=== PATIENT | female | born 1950 | race Caucasian/White ===

== ENCOUNTER 2016-09-19 15:00 | Inpatient (IN) | payer MEDICARE ==
[2016-09-19] VITALS (7 sets, daily range): BP systolic 148–224; BP diastolic 81–110; PULSE 72–88; RESP 16–20; TEMP 98.1–98.6; O2SAT 94–98
[~2016-09-19] VITALS: Ht 152.4 cm; Wt 103.0 kg
[~2016-09-19 15:00] MED LIST: RANI150 PO
[2016-09-19] MEDS ORDERED: SODIUM CHLORIDE 0.9% FLUSH 10 ML FLUSH IVF PRN (15:45)
[2016-09-19] MEDS ORDERED: ASPIRIN 81 MG CHEW TAB PO ONE (15:45)
[2016-09-19 16:01] LABS: AUTOMATED NEUTROPHIL # 4.1 TH/MM3 (1.8-7.7); BASOPHIL % 0.6 % (0.0-2.0); EOSINOPHIL # 0.3 TH/MM3 (0-0.4); EOSINOPHIL % 3.5 % (0.0-4.0); HEMATOCRIT 42.9 % (35.0-46.0); HEMO FLAGS DIFF FINAL; LYMPH % 30.7 % (9.0-44.0); LYMPHOCYTE # 2.2 TH/MM3 (1.0-4.8); MEAN CELL VOLUME 85.9 FL (80.0-100.0); MEAN CORPUSCULAR HEMOGLOBIN 28.9 PG (27.0-34.0); MEAN CORPUSCULAR HGB CONC 33.7 % (32.0-36.0); MONO % 8.9 % (0.0-8.0); NEUT % 56.3 % (16.0-70.0); PLATELET COUNT 283 TH/MM3 (150-450); RED CELL DISTRIBUTION WIDTH 11.6 % (11.6-17.2); WHITE BLOOD COUNT 7.2 TH/MM3 (4.0-11.0)
[2016-09-19 16:09] LABS: CHLORIDE 104 MEQ/L (98-107); POTASSIUM 3.8 MEQ/L (3.5-5.1); SODIUM (NA) 139 MEQ/L (136-145)
--- NOTE | 2016-09-19 16:10 | PD ---
HPI Chief Complaint: Chest Pain Time Seen by Provider: 16:02 Travel History International Travel<30 days: No Contact w/Intl Traveler<30days: No Traveled to known affect area: No History of Present Illness HPI This is a 65-year-old female who has a remote history of breast cancer and who has a family history of her mom having a heart attack at 65 who presents to the emergency department with chest discomfort. She reports that her chest discomfort started last evening as a pain in her left side, sharp, stabbing, intermittent, and progress today feeling like she had a board pressing down on her chest. She did have some radiation to the back. She denies any associated diaphoresis or shortness of breath but did feel little bit nauseous with the pain. She took 1 mg of Ativan prior to arrival because she thought it might help with the symptoms and currently she denies any chest pain here in the emergency department. She says she hasn't seen a doctor in 10 years and is not sure if she has diabetes, hypertension or hyperlipidemia. She denies a smoking history. PFSH Past Medical History Cancer: Yes (breast) Migraines: Yes Menopausal: No Past Surgical History Appendectomy: Yes Tonsillectomy: Yes Other Surgery: Yes (BREAST CA - LUMPECTOMY X 2 - AND PORT) Social History Alcohol Use: No Tobacco Use: No Substance Use: No Allergies-Medications (Allergen,Severity, Reaction): Coded Allergies: Codeine (Verified Allergy, Mild, UPSET STOMACH, 06/06/13) Garlic (Verified Adverse Reaction, Mild, POWDERY FEELING IN MOUTH, 06/06/13) Uncoded Allergies: RED MEATS (Adverse Reaction, Mild, POWDERY FEELING IN MOUTH, 05/25/05) Reported Meds & Prescriptions Reported Meds & Active Scripts Active No Active Prescriptions or Reported Medications Review of Systems Except as stated in HPI: all other systems reviewed are Neg Physical Exam Narrative GENERAL:Well appearing, no acute distress SKIN: Focused skin assessment warm and dry. HEAD: Atraumatic. Normocephalic. EYES: Pupils equal and round. No injection or drainage. ENT: Moist mucous membranes NECK: Trachea midline. CARDIOVASCULAR: Regular rate and rhythm. No murmur appreciated. RESPIRATORY: Clear to auscultation. Breath sounds equal bilaterally. GASTROINTESTINAL: Abdomen soft, non-tender, nondistended. MUSCULOSKELETAL: No obvious deformities. NEUROLOGICAL: Awake and alert. No obvious cranial nerve deficits. Moving all extremities. PSYCHIATRIC: Appropriate mood and affect; insight and judgment normal. Data Data Last Documented VS Vital Signs Date Time Temp Pulse Resp B/P Pulse Ox O2 Delivery O2 Flow Rate FiO2 09/19/16 16:02 97 Room Air 09/19/16 15:24 98.1 80 16 172/81 Orders Electrocardiogram (09/19/16 15:43) Complete Blood Count With Diff (09/19/16 15:43) Comprehensive Metabolic Panel (09/19/16 15:43) D-Dimer (09/19/16 15:43) Magnesium (Mg) (09/19/16 15:43) Prothrombin Time / Inr (Pt) (09/19/16 15:43) Act Partial Throm Time (Ptt) (09/19/16 15:43) Troponin I (09/19/16 15:43) Chest, Single Ap (09/19/16 15:43) Ecg Monitoring (09/19/16 15:43) Bilateral Bp Monitoring (09/19/16 15:43) Iv Access Insert/Monitor (09/19/16 15:43) Oximetry (09/19/16 15:43) Oxygen Administration (09/19/16 15:43) Aspirin Chew (Aspirin Chew) (09/19/16 15:45) Sodium Chloride 0.9% Flush (Ns Flush) (09/19/16 15:45) Labs Laboratory Tests Test 09/19/16 15:48 White Blood Count 7.2 TH/MM3 Red Blood Count 5.00 MIL/MM3 Hemoglobin 14.4 GM/DL Hematocrit 42.9 % Mean Corpuscular Volume 85.9 FL Mean Corpuscular Hemoglobin 28.9 PG Mean Corpuscular Hemoglobin 33.7 % Concent Red Cell Distribution Width 11.6 % Platelet Count 283 TH/MM3 Mean Platelet Volume 7.8 FL Neutrophils (%) (Auto) 56.3 % Lymphocytes (%) (Auto) 30.7 % Monocytes (%) (Auto) 8.9 % Eosinophils (%) (Auto) 3.5 % Basophils (%) (Auto) 0.6 % Neutrophils # (Auto) 4.1 TH/MM3 Lymphocytes # (Auto) 2.2 TH/MM3 Monocytes # (Auto) 0.6 TH/MM3 Eosinophils # (Auto) 0.3 TH/MM3 Basophils # (Auto) 0.0 TH/MM3 CBC Comment DIFF FINAL Differential Comment MDM Medical Decision Making Medical Screen Exam Complete: Yes Emergency Medical Condition: Yes Interpretation(s) Afebrile, no tachycardia EKG: Normal sinus rhythm, no ST changes Differential Diagnosis Acute coronary syndrome, pulmonary embolism, pneumonia, pneumothorax, costochondritis Narrative Course This is a 65-year-old female who presents to the emergency department with left- sided chest pain. She does have a family history of heart attack in her mother. She is placed on a monitor and an IV was established. EKG is nonischemic. She was given aspirin and nitroglycerin for her blood pressure. Chest x-ray and labs were ordered, including a d-dimer given her personal history of breast cancer. I recommended observation to the patient for serial cardiac enzymes and stress test and she was amenable to this. Diagnosis Primary Impression: Chest pain Qualified Code: R07.9 - Chest pain, unspecified type Admitting Information Admitting Physician Requests: Observation Scripts No Active Prescriptions or Reported Meds Jojo Vale MD September 19, 2016 16:10
[2016-09-19 16:13] LABS: ANION GAP 9 MEQ/L (5-15); BICARBONATE 26.1 MEQ/L (21.0-32.0); BLOOD UREA NITROGEN 12 MG/DL (7-18); MAGNESIUM 2.5 MG/DL (1.5-2.5)
[2016-09-19] MEDS ORDERED: NITROGLYCERIN 0.4 MG SL 25 TABS/BTL SL PRN ×2 (16:15→17:30)
[2016-09-19 16:16] LABS: ALT (GPT) 29 U/L (10-53); AST (GOT) 17 U/L (15-37); GLOMERULAR FILTRATION RATE 75 ML/MIN (>89)
[2016-09-19 16:17] LABS: TOTAL BILIRUBIN ADULT 0.3 MG/DL (0.2-1.0)
[2016-09-19 16:19] LABS: ALKALINE PHOSPHATASE 52 U/L (45-117)
[2016-09-19 16:21] LABS: APTT (PATIENT) 25.3 SEC (24.3-30.1); INTERNATIONAL NORMALIZED RATIO 0.9 RATIO
--- NOTE | 2016-09-19 16:21 | RADHPO ---
EXAM DATE/TIME: 09/19/2016 15:55 [facility] COMPARISON: No previous studies available for comparison. INDICATIONS : Chest pain. MEDICAL HISTORY : None. SURGICAL HISTORY : None. ENCOUNTER: Initial ACUITY: 1 day PAIN SCORE: 3/10 LOCATION: Bilateral chest FINDINGS: A single view of the chest demonstrates the lungs to be symmetrically aerated without evidence of mas s, infiltrate or effusion. The cardiomediastinal contours are unremarkable. Osseous structures are intact. CONCLUSION: No acute disease. Robin Tran MD on September 19, 2016 at 16:19 Board Certified Radiologist. This report was verified electronically.
--- NOTE | 2016-09-19 16:31 | PD ---
Data Data Last Documented VS Vital Signs Date Time Temp Pulse Resp B/P Pulse Ox O2 Delivery O2 Flow Rate FiO2 09/19/16 16:02 97 Room Air 09/19/16 15:24 98.1 80 16 172/81 Orders Electrocardiogram (09/19/16 15:43) Complete Blood Count With Diff (09/19/16 15:43) Comprehensive Metabolic Panel (09/19/16 15:43) D-Dimer (09/19/16 15:43) Magnesium (Mg) (09/19/16 15:43) Prothrombin Time / Inr (Pt) (09/19/16 15:43) Act Partial Throm Time (Ptt) (09/19/16 15:43) Troponin I (09/19/16 15:43) Chest, Single Ap (09/19/16 15:43) Ecg Monitoring (09/19/16 15:43) Bilateral Bp Monitoring (09/19/16 15:43) Iv Access Insert/Monitor (09/19/16 15:43) Oximetry (09/19/16 15:43) Oxygen Administration (09/19/16 15:43) Aspirin Chew (Aspirin Chew) (09/19/16 15:45) Sodium Chloride 0.9% Flush (Ns Flush) (09/19/16 15:45) Nitroglycerin Sl (Nitrostat Sl) (09/19/16 16:15) Ct Pulmonary Angiogram (09/19/16 16:28) Iohexol 350 Inj (Omnipaque 350 Inj) (09/19/16 16:58) Labs Laboratory Tests Test 09/19/16 15:48 White Blood Count 7.2 TH/MM3 Red Blood Count 5.00 MIL/MM3 Hemoglobin 14.4 GM/DL Hematocrit 42.9 % Mean Corpuscular Volume 85.9 FL Mean Corpuscular Hemoglobin 28.9 PG Mean Corpuscular Hemoglobin 33.7 % Concent Red Cell Distribution Width 11.6 % Platelet Count 283 TH/MM3 Mean Platelet Volume 7.8 FL Neutrophils (%) (Auto) 56.3 % Lymphocytes (%) (Auto) 30.7 % Monocytes (%) (Auto) 8.9 % Eosinophils (%) (Auto) 3.5 % Basophils (%) (Auto) 0.6 % Neutrophils # (Auto) 4.1 TH/MM3 Lymphocytes # (Auto) 2.2 TH/MM3 Monocytes # (Auto) 0.6 TH/MM3 Eosinophils # (Auto) 0.3 TH/MM3 Basophils # (Auto) 0.0 TH/MM3 CBC Comment DIFF FINAL Differential Comment Prothrombin Time 10.0 SEC Prothromb Time International 0.9 RATIO Ratio Activated Partial 25.3 SEC Thromboplast Time D-Dimer Quantitative (PE/DVT) 0.64 MG/L FEU Sodium Level 139 MEQ/L Potassium Level 3.8 MEQ/L Chloride Level 104 MEQ/L Carbon Dioxide Level 26.1 MEQ/L Anion Gap 9 MEQ/L Blood Urea Nitrogen 12 MG/DL Creatinine 0.77 MG/DL Estimat Glomerular Filtration 75 ML/MIN Rate Random Glucose 153 MG/DL Calcium Level 8.9 MG/DL Magnesium Level 2.5 MG/DL Total Bilirubin 0.3 MG/DL Aspartate Amino Transf 17 U/L (AST/SGOT) Alanine Aminotransferase 29 U/L (ALT/SGPT) Alkaline Phosphatase 52 U/L Troponin I LESS THAN 0.02 NG/ML Total Protein 7.7 GM/DL Albumin 3.4 GM/DL [facility] Supervised Visit with ANA MARÍA: No Narrative Course The patient was initially evaluated by the previous provider and signed out to me at the beginning of my shift approximate 4:00 PM pending labs and disposition. See her note for further details. Briefly this is a 65-year-old female who is here for evaluation of left-sided chest pain that started yesterday evening. Pain described as a heaviness. Patient has family history of cardiac disease with her mom who had an NH at the age of 6464 years old. On my exam the patient is resting comfortably, denies chest pain. She does have history of breast cancer and is in remission. Initial vital signs show heart rate 80, blood pressure 172/81, pulse ox 95% on room air, oral temp of 98.1F. CBC is unremarkable. CMP is remarkable for random glucose 153, otherwise unremarkable. Cardiac enzymes are negative. D-dimer is slightly elevated at 0.64. Chest x-ray shows no acute disease. EKG shows sinus with a rate of 80, left axis deviation, normal intervals, no acute ischemic abnormality, poor R-wave progression. CT pulmonary angiogram: CONCLUSION: No evidence of pulmonary embolism Patient was made aware of all findings. She is resting comfortably. She was given a full aspirin by the previous provider. She is currently chest pain- free. She'll be admitted to the chest pain center for further cardiac evaluation. Case discussed with hospitalist Dr. Christopher who will admit the patient to his service. Diagnosis Primary Impression: Chest pain Qualified Code: R07.9 - Chest pain, unspecified type Admitting Information Admitting Physician Requests: Observation Scripts No Active Prescriptions or Reported Meds Yoel Terry MD September 19, 2016 16:31
[2016-09-19] MEDS ORDERED: IOHEXOL 350 MG/ML 10 ML VIAL (for RAD DIAG) IV ONE (16:58)
--- NOTE | 2016-09-19 17:06 | RADHPO ---
EXAM DATE/TIME: 09/19/2016 16:43 [facility] COMPARISON: No previous studies available for comparison. INDICATIONS : Chest pain. Evaluate for embolism. IV CONTRAST: 70 cc Omnipaque 350 (iohexol) IV RADIATION DOSE: 21.60 CTDIvol (mGy) MEDICAL HISTORY : Carcinoma, breast. SURGICAL HISTORY : Appendectomy. Right lumpectomy. ENCOUNTER: Initial ACUITY: 1 day PAIN SCALE: 5/10 LOCATION: chest TECHNIQUE: Volumetric scanning of the chest was performed using a pulmonary embolism protocol MIP images were re constructed. Using automated exposure control and adjustment of the mA and/or kV according to patien t size, radiation dose was kept as low as reasonably achievable to obtain optimal diagnostic quality images. FINDINGS: PULMONARY ARTERIES: No filling defects are seen in the pulmonary arteries through the segmental level. LUNGS: There is no consolidation or pneumothorax . No concerning pulmonary nodule is visualized. PLEURAE: There is no pleural thickening or pleural effusion. MEDIASTINUM: There is good visualization of the great vessels of the middle mediastinum. No evidence of mediastin al or hilar adenopathy/mass. MUSCULOSKELETAL: Within normal limits for patient age. MISCELLANEOUS: Surgical clips in the left axillary region. Gallstone. CONCLUSION: No evidence of pulmonary embolism Robin Tran MD on September 19, 2016 at 16:59 Board Certified Radiologist. This report was verified electronically.
[2016-09-19] MEDS ORDERED: SODIUM CHLORIDE 0.9% FLUSH 10 ML FLUSH IV FLUSH PRN (17:30)
[2016-09-19] MEDS ORDERED: NALOXONE HCL 0.4 MG/ML AMP IV PRN (17:30)
[2016-09-19] MEDS ORDERED: PILL SPLITTER OTHER PRN (17:45)
[2016-09-19] MEDS ORDERED: METOPROLOL TARTRATE 50 MG TAB PO ONE (18:15)
[2016-09-19] MEDS ORDERED: ALPRAZolam 0.25 MG TAB PO PRN (18:15)
[2016-09-19] MEDS ORDERED: ENALAPRILAT 1.25 MG/ML VIAL IV PUSH PRN (18:15)
[2016-09-19] MEDS: ENOXAPARIN SODIUM 40 MG/0.4 ML SYRINGE SQ SCH (18:29)
--- NOTE | 2016-09-19 18:52 | HHI.HP ---
[facility] No Primary Care Physician Admission Diagnosis Chest pain Diagnoses: (1) Chest pain Diagnosis: Principal (2) Hypertensive urgency Diagnosis: Principal Chief Complaint: chest pain Travel History International Travel<30 Days: No Contact w/Intl Traveler <30 Da: No Traveled to Known Affected Are: No History of Present Illness Written by Magdalene Patel PA-C acting as scribe for Dr. Christopher on 09/19/16 at 1810. 65-year-old female with fibromyalgia, neck and shoulder pain, and remote history of breast cancer presents with complaint of chest pain. Patient states pain started yesterday evening in L shape on her left breast, side and top. She states it lasted 1-2 hours. She states this afternoon he reoccurred and she felt flutters" in her chest along with the same L shape pain for about an hour and then it changed to centralized chest pressure and felt heavy which lasted another 20 minutes. This prompted the patient to come to the ED. She denies any diaphoresis or associated shortness of breath but does admit to some nausea. Denies any vomiting. She does admit to occipital headache denies any visual changes. Her states her blood pressure today at home was 190 something/138. Patient states that she checks her blood pressure periodically and is never that high, but she has not seen a primary care physician in 10 years. Review of Systems Except as stated in HPI: all other systems reviewed are Neg Past Family Social History Past Medical History Breast cancer diagnosed in 2004. Completed chemotherapy and radiation in 2005. Hodgkin's lymphoma in her 20s Fibromyalgia, neck and shoulder pain. Past Surgical History Lumpectomy 2 in 2006 Tonsillectomy and adenoid neck pain Appendectomy Reported Medications No Active Prescriptions or Reported Medications Allergies: Coded Allergies: Codeine (Verified Allergy, Mild, UPSET STOMACH, 06/06/13) Garlic (Verified Adverse Reaction, Mild, POWDERY FEELING IN MOUTH, 06/06/13) Uncoded Allergies: RED MEATS (Adverse Reaction, Mild, POWDERY FEELING IN MOUTH, 05/25/05) Family History Mother: of massive IL at age 64; hypertension. Social History Denies alcohol use. Denies cigarette smoking. Physical Exam Vital Signs Vital Signs Date Time Temp Pulse Resp B/P Pulse Ox O2 Delivery O2 Flow Rate FiO2 09/19/16 17:38 78 18 224/104 98 09/19/16 17:30 80 16 205/89 98 Room Air 09/19/16 16:02 97 Room Air 09/19/16 15:59 98 Room Air 09/19/16 15:24 98.1 80 16 172/81 95 Physical Exam GENERAL: This is a pleasant obese patient in no apparent distress. SKIN: No rashes, ecchymoses or lesions. Warm and dry. HEAD: Atraumatic. Normocephalic. EYES: No scleral icterus. No injection or drainage. NECK: No JVD. CARDIOVASCULAR: Regular rate and rhythm without murmurs, gallops, or rubs. RESPIRATORY: Clear to auscultation. Breath sounds equal bilaterally. No wheezes , rales, or rhonchi. GASTROINTESTINAL: Normoactive bowel sounds. MUSCULOSKELETAL: No lower extremity edema bilaterally. NEUROLOGICAL: Awake and alert. Motor grossly within normal limits. Normal speech. Laboratory Laboratory Tests Test 09/19/16 15:48 White Blood Count 7.2 Red Blood Count 5.00 Hemoglobin 14.4 Hematocrit 42.9 Mean Corpuscular Volume 85.9 Mean Corpuscular Hemoglobin 28.9 Mean Corpuscular Hemoglobin 33.7 Concent Red Cell Distribution Width 11.6 Platelet Count 283 Mean Platelet Volume 7.8 Neutrophils (%) (Auto) 56.3 Lymphocytes (%) (Auto) 30.7 Monocytes (%) (Auto) 8.9 Eosinophils (%) (Auto) 3.5 Basophils (%) (Auto) 0.6 Neutrophils # (Auto) 4.1 Lymphocytes # (Auto) 2.2 Monocytes # (Auto) 0.6 Eosinophils # (Auto) 0.3 Basophils # (Auto) 0.0 CBC Comment DIFF FINAL Differential Comment Prothrombin Time 10.0 Prothromb Time International 0.9 Ratio Activated Partial 25.3 Thromboplast Time D-Dimer Quantitative (PE/DVT) 0.64 Sodium Level 139 Potassium Level 3.8 Chloride Level 104 Carbon Dioxide Level 26.1 Anion Gap 9 Blood Urea Nitrogen 12 Creatinine 0.77 Estimat Glomerular Filtration 75 Rate Random Glucose 153 Calcium Level 8.9 Magnesium Level 2.5 Total Bilirubin 0.3 Aspartate Amino Transf 17 (AST/SGOT) Alanine Aminotransferase 29 (ALT/SGPT) Alkaline Phosphatase 52 Troponin I LESS THAN 0.02 Total Protein 7.7 Albumin 3.4 Result Diagram: 09/19/16 1548 09/19/[address] Angiography 09/19/16 1628 Signed Impressions: Service Date/Time: Monday, September 19, 2016 16:43 - CONCLUSION: No evidence of pulmonary embolism Robin Tran MD Chest X-Ray 09/19/16 1543 Signed Impressions: Service Date/Time: Monday, September 19, 2016 15:55 - CONCLUSION: No acute disease. Robin Tran MD Assessment and Plan Assessment and Plan 65-year-old female with: Chest pain: Heavy pressure and fluttering sensation today, pain starting yesterday. Patient was given 162 mg of aspirin in the ED. First troponin < 0.02. EKGs 2 personally interpreted with normal sinus rhythm and no evidence of ischemia. Chest x-ray without acute disease. CTA negative for pulmonary embolus. Chest pain could likely be attributed to hypertension. -Serial EKGs and enzymes -Daily aspirin -Nitroglycerin prn chest pain -Zofran prn nausea -Telemetry -NPO after midnight. No caffeine after 1900 hours tonight. Provided blood pressure improves and ACS rules out plan is for patient to undergo nuclear stress test. Hypertensive urgency: BP 234/94. Patient has mild headache. -Metoprolol 25 mg every 12 hours -Enalapril and clonidine every 6 hours as needed for SBP>160 and/or DBP>90. -Tylenol prn for MYERS -Xanax prn for anxiety DVT prevention: Lovenox This note was transcribed by whitley [Magdalene Patel]. I, Dr. Pedro Christopher personally performed the history, physical exam, and medical decision making; and confirmed the accuracy of the information in the transcribed note. Authenticated by Dr. Pedro Christopher on 09/19/16 at 19:07. Discussed Condition With ED physician, patient and her Problem Qualifiers (1) Chest pain: Qualified Code: R07.9 - Chest pain, unspecified type Magdalene Patel September 19, 2016 6:52 pm Pedro Christopher MD September 19, 2016 7:07 pm
[2016-09-19] MEDS ORDERED: ACETAMINOPHEN 500 MG CPLT PO PRN (19:00)
[2016-09-19 19:13] LABS: CREATINE KINASE 61 U/L (26-192)
[2016-09-19] MEDS: SODIUM CHLORIDE 0.9% FLUSH 10 ML FLUSH IV FLUSH SCH (20:45)
[2016-09-19] MEDS: METOPROLOL TARTRATE 25 MG TAB PO SCH (20:45)
[2016-09-19] MEDS ORDERED: METOPROLOL TARTRATE 25 MG TAB PO SCH (21:00)
[2016-09-19 22:47] LABS: CREATINE KINASE 61 U/L (26-192)
[2016-09-20] VITALS (11 sets, daily range): BP systolic 132–189; BP diastolic 59–85; PULSE 63–73; RESP 18–20; TEMP 95.8–98.4; O2SAT 94–97
[2016-09-20] MEDS: amLODIPine BESYLATE 5 MG TAB PO SCH ×2 (06:12→09:00)
[2016-09-20 07:27] LABS: AUTOMATED NEUTROPHIL # 3.7 TH/MM3 (1.8-7.7); BASOPHIL # 0.1 TH/MM3 (0-0.2); BASOPHIL % 0.7 % (0.0-2.0); EOSINOPHIL # 0.3 TH/MM3 (0-0.4); HEMATOCRIT 42.3 % (35.0-46.0); LYMPH % 33.8 % (9.0-44.0); LYMPHOCYTE # 2.5 TH/MM3 (1.0-4.8); MEAN CELL VOLUME 87.6 FL (80.0-100.0); MEAN CORPUSCULAR HGB CONC 33.1 % (32.0-36.0); MONO % 9.1 % (0.0-8.0); NEUT % 52.4 % (16.0-70.0); PLATELET COUNT 264 TH/MM3 (150-450); RED BLOOD COUNT 4.83 MIL/MM3 (4.00-5.30); RED CELL DISTRIBUTION WIDTH 12.1 % (11.6-17.2); WHITE BLOOD COUNT 7.3 TH/MM3 (4.0-11.0)
[2016-09-20 07:30] LABS: POTASSIUM 3.8 MEQ/L (3.5-5.1)
[2016-09-20 07:31] LABS: HEMO FLAGS DIFF FINAL
[2016-09-20 07:35] LABS: BICARBONATE 27.2 MEQ/L (21.0-32.0)
[2016-09-20] MEDS: SODIUM CHLORIDE 0.9% FLUSH 10 ML FLUSH IV FLUSH SCH ×2 (09:00→21:00)
[2016-09-20] MEDS: METOPROLOL TARTRATE 25 MG TAB PO SCH ×2 (09:00→21:08)
[2016-09-20] MEDS: ONDANSETRON HCL 4 MG/2 ML VIAL IVP PRN ×2 (09:37→14:21)
[2016-09-20] MEDS ORDERED: REGADENOSON INJ 0.4 MG/5 ML SYR IV ONE (10:15)
[2016-09-20] MEDS ORDERED: PROCHLORPERAZINE INJ 10 MG/2 ML VIAL IM PRN (12:00)
--- NOTE | 2016-09-20 12:14 | RADHPO ---
EXAM DATE/TIME: 09/20/2016 10:16 [facility] COMPARISON: No previous studies available for comparison. INDICATIONS : Left chest pain radiating to the back with nausea. Angina. DOSE: 35 mCi Tc99m Myoview at stress. 11 mCi Tc99m Myoview at rest. 0.4 mg Lexiscan STRESS SYMPTOMS: Nausea, vomiting and head pressure. EJECTION FRACTION: 61% MEDICAL HISTORY : None SURGICAL HISTORY : Tonsillectomy. Appendectomy. ENCOUNTER: Initial ACUITY: 2 days PAIN SCALE: 6/10 LOCATION: Left chest TECHNIQUE: The patient underwent pharmacologic stress with infusion of prescribed dose. Continuous ECG tracing was monitored during stress. Gated SPECT imaging was performed after stress and conventional SPECT i maging was performed at rest. The examination was performed on a SPECT/CT scanner, both attenuation and non-corrected datasets were reviewed. FINDINGS: DISTRIBUTION: The maximum perfused segment at stress is in the lateral wall. PERFUSION STUDY: There is mild to moderate reversibility involving the apex more notably involving the anterior wall a nd septum. GATED STUDY: There is intact wall motion and thickening without hypokinetic or dyskinetic segments. CONCLUSION: 1. Mild to moderate reversibility involving the apex suggesting ischemia. 2. Normal ejection fraction. RISK CATEGORY: Intermediate (1-3% Annual Mortality Rate) Dhruv Tate MD on September 20, 2016 at 12:07 Board Certified Radiologist. This report was verified electronically.
[2016-09-20] MEDS: ASPIRIN 81 MG CHEW TAB CHEW SCH (12:35)
[2016-09-20] MEDS ORDERED: METOPROLOL TARTRATE 25 MG TAB PO SCH (12:45)
[2016-09-20] MEDS ORDERED: MIDAZOLAM HCL 2 MG/2 ML VIAL ONE ×2 (15:04→15:35)
[2016-09-20] MEDS ORDERED: HEPARIN-NS/PF INJ 500 ML ONE (15:04)
[2016-09-20] MEDS ORDERED: HEPARIN SODIUM - IV 10,000 UNITS/10 ML VIAL ONE (15:05)
[2016-09-20] MEDS ORDERED: LABETALOL HCL 100 MG/20 ML VIAL ONE (15:49)
--- NOTE | 2016-09-20 16:07 | MB ---
cc: ANJUM AGUILLON DATE OF CONSULTATION 09/20/2016 REASON FOR CONSULTATION Ms. Cooney is a 65-year-old white female with a history of fibromyalgia , hypertension and a remote history of breast cancer. She developed left-sided chest discomfort, flatus and subsequently anterior chest pressure. She was admitted to the chest pain center and underwent nuclear myocardial perfusion study which showed apical ischemia. She is now referred for cardiac catheterization for further evaluation. She denies any shortness of breath. She has recently had increased blood pressure. PAST MEDICAL HISTORY Positive for: 1. Breast cancer in 2005 treated with chemotherapy and radiation. 2. Hypertension currently. 3. Fibromyalgia. 4. Neck and shoulder pain. 5. History of lumpectomy. 6. Tonsillectomy and adenoidectomy. 7. History of appendectomy. MEDICATIONS None. ALLERGIES CODEINE AND GARLIC. SOCIAL HISTORY The patient does not smoke. She does not drink alcohol. FAMILY HISTORY Positive for heart disease in her mother who of myocardial infarction at the age of 64. REVIEW OF SYSTEMS Otherwise negative. PHYSICAL EXAMINATION VITAL SIGNS: Blood pressure 165/59, pulse 63 and regular. HEENT: Negative. 2+ carotid upstroke. No bruits. LUNGS: Clear. HEART: Regular with no murmur, gallop or rub. ABDOMEN: Soft. No bruits. EXTREMITIES: Without edema. 2+ distal pulses. NEUROLOGICAL: Grossly nonfocal. EKG was reviewed and showed normal sinus rhythm, delayed R wave progression of precordial leads. No acute changes. LABORATORY DATA Hemoglobin 14.0. Potassium 3.8, creatinine 0.7. CK 61. Troponin normal times three. DIAGNOSES 1. New onset angina. 2. Abnormal nuclear myocardial perfusion study (intermediate probability). 3. Hypertension. 4. History of breast cancer treated with lumpectomy, chemotherapy and radiation. 5. History of Hodgkin's lymphoma. 6. Fibromyalgia. DISPOSITION Ms. Cooney will undergo cardiac catheterization and coronary intervention if necessary. The patient understands the risks and benefits, and wishes to proceed. I recommend to continue aggressive modification of her cardiac risk factors including hypertension. MD CAROL ANN Shelley/DAE /2:42 PM /3:54 PM LIBBY
[2016-09-20 16:11] LABS: HDL CHOLESTEROL 40.1 MG/DL (40.0-60.0)
--- NOTE | 2016-09-20 16:12 | CATHPROC ---
[facility]by HIS Report Study Information Study Number Admission Scheduled Start Study Start [id number] 09/19/2016 09/20/2016 Sep 20 2016 3:02PM Referring Institution Admit Source Facility Department 1 Emergency department [facility] - Valve Seater Operator Physician and Clinical Staff Initial Ny Fisher Journeyman Press Operator Majo Luciano,RN Other cathlab, cathlab Recorder Claudine Ya,RT(R) TECH2 Scrub Terrence Turner RCIS(BS) Procedures Performed Procedure Location (Site) Vessel Name Angiogram LV LV Ventricle Coronary Angiograms RCA Right Coronary Equipment Time Order Desk Caller Description Size Mfg Part Number Used/Scraped TRANSDUCER, TRUWAVE 15:04 VASQUEZ LUCIANO * [id number] Used W/STOCKCOCK [id number] *[id number] *[id number] *[id number] 15:04 [employer] IND[employer]ES PACK, CCL CUSTOM * Used *[id number] 15:04 [employer] PACER PEN, SKIN DUAL W/ RULER * [id number] Used [id number] 15:04 [employer] WIRE, 3MMJ .035 180CM 180CM Used *[id number] PROBE COVER, STERILE 15:04 [employer] Method * [id number] Used ULTRASOUND W/ GEL [id number] 15:04 NAMIC MANIFOLD, 4 PORT * Used *[id number] 15:04 NAMIC TUBING, HIGH PRESSURE 48" 48" Used *[id number] 15:04 [employer] OMNIPAQUE, 350 MG, 150ML 150ML [id number] Used [id number] 15:04 [employer] BLANKET,WARM AIR CCL * Used *[id number] 15:04 TERUMO MEDICAL SHEATH, FR5 TERUMO (10CM) FR 5 [id number] Used History: Current Medications Medication Dosage/Unit Route Frequency Last Date/Time Taken ASA Beta Jordyn LOVENOX History: Allergies Allergy Reaction Codeine UPSET STOMACH Garlic POWDERY FEELING IN MOUTH RED MEATS POWDERY FEELING IN MOUTH History: Risk Factors Family History of Hypertension Dyslipidemia Previous NH Previous Heart Failure Premature CAD No No No Yes No Prior Valve Prior PCI Prior CABG Surgery No No No Cerebrovascular Peripheral Artery Chronic Lung On Dialysis Diabetes Disease Disease Disease No No No No No History: Symptoms/Diagnosis Selection Items Angina-unstable History: Stress Tests Stress or Imaging Studies Performed Yes Standard Exercise Stress Test No Stress Echo No Stress Test SPECT Stress Test SPECT Result Stress Test SPECT Ischemia Risk/Extent Yes Positive Intermediate Stress Test CMR No Cardiac CTA Coronary Calcium Score No No History: Other Disease Selection Items Cancer History: Other Current Smoker No Medication Medication Total Dose (Bolus/Oral) Medication Total Dosage/Unit 1% XYLOCAINE 20 mL FENTANYL 150 mcg LABETOLOL 20 mg VERSED 4 mg Medications (Bolus/Oral) Medication Time Given Dosage/Unit Administered By Reason VERSED 09/20/2016 3:25:00 PM 2 mg Majo Luciano As per physicians kira bal order 2 mg VERSED given in lab by Majo Luciano RN in Right Antecubital via Peripheral IV. Ordered by Ny Sanchez. Reason: As per physicians verbal order. FENTANYL 09/20/2016 3:26:46 PM 50 mcg Majo Luciano 50 mcg FENTANYL given in lab by Majo Luciano RN in Right Antecubital via Peripheral IV. Ordered by Ny Sanchez. VERSED 09/20/2016 3:35:43 PM 1 mg Sae Lucianoa As per physicians kira bal order 1 mg VERSED given in lab by Majo Luciano RN in Right Antecubital via Peripheral IV. Ordered by Ny Sanchez. Reason: As per physicians verbal order. 1% XYLOCAINE 09/20/2016 3:36:02 PM 20 mL Ny Sanchez 20 mL 1% XYLOCAINE given in lab by Ny Sanchez in Right Groin via Subcutaneous. Ordered by Ny Dodge. FENTANYL 09/20/2016 3:36:21 PM 50 mcg Majo Luciano 50 mcg FENTANYL given in lab by Majo Luciano RN in Right Antecubital via Peripheral IV. Ordered by Ny Sanchez. VERSED 09/20/2016 3:41:58 PM 1 mg Majo Luciano As per physicians kira bal order 1 mg VERSED given in lab by Majo Luciano RN in Right Antecubital via Peripheral IV. Ordered by Ny Sanchez. Reason: As per physicians verbal order. FENTANYL 09/20/2016 3:42:32 PM 50 mcg Majo Luciano 50 mcg FENTANYL given in lab by Majo Luciano RN in Right Antecubital via Peripheral IV. Ordered by Ny Sanchez. LABETOLOL 09/20/2016 3:50:19 PM 20 mg Majo Luciano 20 mg LABETOLOL given in lab by Majo Luciano, RN in Right Antecubital via Peripheral IV. Ordered by Ny Sanchez. Medication (Drip) Medication Time Given Dosage/Unit Concentration/Unit Diluent (ml) Solution IV Solutions 09/20/2016 3:04:00 PM 0 mL (IV) 500 NaCl .9 Patient arrived on IV Solutions in Right Hand via Peripheral IV. Pump/Drip Flow = 20 ml/hr using NaCl .9. Ordered by Ny Sanchez. Initial Case Assessment Cardiovascular HR Rhythm NIBP Chest Pain 64 SR 210/90 0 Edema Present Skin color Skin None Normal Warm Dry Circulatory - Right Pulses Dorsalis Pedis Femoral 2 2 Scale (0,1,2,3,4,d) Circulatory - Left Pulses Dorsalis Pedis Femoral 2 1 Scale (0,1,2,3,4,d) Neurological State Oriented to time-place- Alert Moves all extremities person Respiration - General Respiration Rate SpO2 (%) (B/min) 14 96 Final Case Assessment Cardiovascular HR Rhythm NIBP Chest Pain 70 sr 179/68 0 Edema Present Skin color Skin None Normal Warm Dry Circulatory - Right Pulses Dorsalis Pedis Femoral 2 2 Scale (0,1,2,3,4,d) Circulatory - Left Pulses Dorsalis Pedis Femoral 2 1 Scale (0,1,2,3,4,d) Neurological State Oriented to time-place- Alert Moves all extremities person Respiration - General Respiration Rate SpO2 (%) (B/min) 18 99 Chronological Log Time Study Chronological Log 15:02:34 Patient arrived via Bed. 15:02:35 Patient Name, D.O.B, / Armband Verified By R.N. 15:02:36 Consent signed by the physician and the patient and verified by the Valve Seater Operator staff. 15:02:37 Pre-op and post- op instructions given; patient acknowledges understanding of instructions. 15:02:38 Verbal Stimulation=2 Physical Stimulation=2 Airway=2 Respiration=2 TOTAL=8. (0=absent, 1=li mited, 2=present) 15:03:49 Patient has been NPO for More than 6Hrs. 15:03:50 Skin Breakdown-none per patient 15:03:58 Alan Prominences Protected 15:03:59 A # 20 IV was noted in the Hand (right). Grade = 0 Patient arrived on IV Solutions in Right Hand via Peripheral IV. Pump/Drip Flow = 20 ml/hr usin g NaCl .9. Ordered by 15:04:00 Ny Sanchez. 15:04:06 A # 20 IV was noted in the Antecubital (right). Grade = 0 Vitals capture started with the following parameters, Patient=Adult, Interval=5 min, Initial Pr klpgen=926 mmHg, 15:05:49 Deflation Rate=5 mmHg 15:06:10 History and physical on the chart or being dictated. 15:06:58 Reference ECG taken Assessment: Initial Case, HR=64 BPM, Rhythm=SR, ZMXH=536/90 mmhg, Chest Pain=0, Edema=None, Col or=Normal, Skin = Warm, Dry Right Pulses: Enoch Ped=2, Femoral=2 15:07:11 Left Pulses: Enoch Ped=2, Femoral=1 Neurological: State=Alert, Ox3, CAPUTO Respiration: Resp=14 B/min, SpO2=96 % 15:07:15 HR=60 bpm, DKQK=996/90 mmhg, SpO2=96.0 %, Resp=17 B/min, Pain=0, Lavelle=10, Hirsch=2 15:10:30 Bilateral groins prepped with 2% chlorhexidine, and with a 3 min. waiting time. 15:13:15 HR=59 bpm, SKAH=202/79 mmhg, SpO2=98.0 %, Resp=21 B/min, Pain=0, Lavelle=10, Hirsch=2 15:15:05 Pressure channel 1 zeroed. 15:15:17 MD notified WE ARE READY 15:16:42 HR=57 bpm, RPAD=894/82 mmhg, SpO2=98.0 %, Resp=14 B/min, Pain=0, Lavelle=10, Hirsch=2 15:21:41 HR=61 bpm, YWUL=639/82 mmhg, SpO2=96.0 %, Resp=18 B/min, Pain=0, Lavelle=10, Hirsch=2 2 mg VERSED given in lab by Majo Luciano, RN in Right Antecubital via Peripheral IV. Order ed by Daniel, 15:25:00 Ny. Reason: As per physicians verbal order. 15:25:26 MD arrived. 15:26:42 HR=56 bpm, KTTA=134/81 mmhg, SpO2=95 %, Resp=20 B/min, Pain=0, Lavelle=10, Hirsch=2 50 mcg FENTANYL given in lab by Majo Luciano, FREDRICK in Right Antecubital via Peripheral IV. O rdered by Daniel, 15:26:46 Ny. 15:32:14 HR=60 bpm, KLWH=242/84 mmhg, SpO2=95 %, Resp=14 B/min, Pain=0, Lavelle=10, Hirsch=2 Time Out. Correct patient, correct procedure,correct physician, ,power injector loaded with con trast with surgical team 15:34:37 present. Time Out Concurred by MD, individual staff and CONTROLLER REPAIRER AND TESTER in procedure 1 mg VERSED given in lab by Majo Luciano, FREDRICK in Right Antecubital via Peripheral IV. Order ed by Daniel, 15:35:43 Ny. Reason: As per physicians verbal order. 15:35:52 Case Start 15:36:02 20 mL 1% XYLOCAINE given in lab by Ny Sanchez in Right Groin via Subcutaneous. Ordered by Ny Sanchez. 15:36:17 Access site was Right Femoral Artery. obtained with a micropuncture kit. 50 mcg FENTANYL given in lab by Majo Luciano RN in Right Antecubital via Peripheral IV. O rdered by Daniel, 15:36:21 Ny. 15:36:48 A SHEATH, FR5 TERUMO (10CM) FR 5 was advanced into the Fem Art (right) using the Percutaneo us technique. A PIGTAIL ANG. INFINITI CATHETER FR 5 was advanced over a wire. OMNIPAQUE, 350 MG, 150ML 150ML was used 15:37:17 for injections. 15:37:25 HR=59 bpm, TFMS=883/70 mmhg, SpO2=95 %, Resp=19 B/min, Pain=0, Lavelle=10, Hirsch=2 Recorded Pressure: LV, HR=59, Condition=Condition 1 15:38:48 (Left Ventricle) LV 156/10/15 15:38:58 The LV was injected at 10 cc/sec for a total of 30. OMNIPAQUE, 350 MG, 150ML 150ML used. Recorded Pressure: LV, Ao, HR=55, Condition=Condition 1 15:40:25 (Left Ventricle) LV 155/13/21, (Aorta) Ao 151/60/95 15:40:51 Catheter was removed A JL 4.0 INFINITI CATHETER FR 5 was advanced over a wire. OMNIPAQUE, 350 MG, 150ML 150ML was us ed for 15:40:51 injections. Recorded Pressure: Ao, HR=60, Condition=Condition 1 15:41:37 (Aorta) Ao 159/68/103 1 mg VERSED given in lab by Majo Luciano, RN in Right Antecubital via Peripheral IV. Order ed by Daniel, 15:41:58 Ny. Reason: As per physicians verbal order. 15:42:14 HR=64 bpm, BTLR=426/74 mmhg, SpO2=91.0 %, Resp=14 B/min, Pain=0, Lavelle=10, Hirsch=2 50 mcg FENTANYL given in lab by Majo Luciano, FREDRICK in Right Antecubital via Peripheral IV. O rdered by Daniel, 15:42:32 Ny. 15:43:18 Catheter was removed A AR MOD INFINITI CATHETER FR 5 was advanced over a wire. OMNIPAQUE, 350 MG, 150ML 150ML was us ed for 15:43:20 injections. 15:44:57 The RCA was injected and visualized at various angles. OMNIPAQUE, 350 MG, 150ML 150ML use d. 15:45:28 Catheter was removed 15:46:42 HR=66 bpm, ZNJL=629/73 mmhg, SpO2=96.0 %, Resp=12 B/min, Pain=0, Lavelle=10, Hirsch=2 15:47:12 Case End 20 mg LABETOLOL given in lab by Majo Luciano, RN in Right Antecubital via Peripheral IV. Ordered by Daniel, 15:50:19 Ny. 15:51:39 HR=69 bpm, FOBU=104/71 mmhg, SpO2=95.0 %, Resp=12 B/min, Pain=0, Lavelle=10, Hirsch=2 15:51:46 DOCU called. Spoke to Cristy. 15:52:01 Contrast Scanned 15:52:05 No case complications noted. 15:52:06 Cine recording checked. 15:52:20 Bedside Report will be given. 15:55:01 Sheath removed; pressure applied to access site. Terrence Turner DENTAL LABORATORY TECHNICIAN pulled sheath 15:56:38 HR=67 bpm, GVIA=472/69 mmhg, SpO2=95.0 %, Resp=21 B/min, Pain=0, Lavelle=10, Hirsch=2 16:02:08 HR=66 bpm, YKNL=602/88 mmhg, SpO2=97.0 %, Resp=18 B/min, Pain=0, Lavelle=10, Hirsch=2 16:06:43 HR=61 bpm, JMXJ=129/68 mmhg, SpO2=96.0 %, Resp=11 B/min, Pain=0, Lavelle=10, Hirsch=2 16:11:23 Sterile dressing applied to site Assessment: Final Case, HR=70 BPM, Rhythm=sr, TVFU=565/68 mmhg, Chest Pain=0, Edema=None, [place] r=Normal, Skin = Warm, Dry Right Pulses: Enoch Ped=2, Femoral=2 16:11:26 Left Pulses: Enoch Ped=2, Femoral=1 Neurological: State=Alert, Ox3, CAPUTO Respiration: Resp=18 B/min, SpO2=99 % End Study - Contrast Media Used In Study Contrast Total Opened (mL) Total Used (mL) Total Wasted (mL) Omnipaque 80 80 0 End Study - Radiation Exposure Fluoro Time (minutes) 1.7 End Study - Sheaths Sheaths Pulled By Sheath Hold Time (min) Terrence Turner 15 End Study - Patient Disposition Complications Transferred To Telemetry Bed
[2016-09-20] MEDS ORDERED: IOHEXOL 350 MG/ML 100 ML BTL (for Cath Lab) OTHER ONE (16:38)
[2016-09-20 16:52] LABS: HEMOGLOBIN A1a 1.1 %; HEMOGLOBIN A1b 1.8 %; HEMOGLOBIN Ao 83.9 %; HEMOGLOBIN LA1C 2.1 %; HEMOGLOBIN P3 3.7 %
[2016-09-20] MEDS: cloNIDine HCL 0.1 MG TAB PO PRN (17:25)
[2016-09-20] MEDS: ENOXAPARIN SODIUM 40 MG/0.4 ML SYRINGE SQ SCH (18:57)
[2016-09-20] MEDS: ATORVASTATIN 20 MG TAB PO SCH (21:09)
--- NOTE | 2016-09-20 22:13 | MA ---
cc: NY SANCHEZ DATE 09/20/2016 INDICATION Unstable angina, class IV angina, intermediate probability nuclear myocardial perfusion study. PROCEDURE PERFORMED 1. Retrograde left heart catheterization with left ventriculography and selective coronary angiography. 2. Moderate sedation. ACCESS SITE Right femoral artery. EQUIPMENT USED 5 Thai pigtail catheter, 5 Thai JL4 and AR modified coronary artery catheters. MEDICATIONS 1. Versed IV. 2. Fentanyl IV. CONTRAST Omnipaque 80 cc. BLOOD LOSS Less than 10 cc. COMPLICATIONS None. METHOD OF HEMOSTASIS Manual compression. RESULTS HEMODYNAMICS Heart rate 68 beats per minute. Left ventricular end-diastolic pressure 13 mmHg. Left ventricle 155/13. Aorta 155/68/103 LEFT VENTRICULOGRAPHY Ejection fraction 55%. Wall motion normal. No mitral regurgitation seen. CORONARY ANGIOGRAPHY Left main coronary artery patent. Left anterior descending artery patent. D-1 patent. Left circumflex artery patent. OM-1 patent. OM-2 patent. Left PDA patent. Right coronary artery is a small, codominant vessel which is patent. Right PDA is small and patent. DIAGNOSES 1. Patent coronary arteries. 2. Preserved left ventricular systolic function. DISPOSITION Ms. Cooney can be reassured about her cardiac status. She has patent coronary arteries and normal LV function. Her left ventricular systolic function per her nuclear myocardial perfusion study was falsely abnormal. I recommend to continue her current medical program including therapy for hypertension. She can be discharged home once her blood pressure is controlled. Ny Sanchez MD OQ/KK /3:55 PM /10:00 PM LIBBY
[2016-09-21] VITALS (24 sets, daily range): BP systolic 119–178; BP diastolic 50–84; PULSE 55–68; RESP 16–20; TEMP 97.4–98.8; O2SAT 95–98
--- NOTE | 2016-09-21 07:02 | EKG ---
Date Performed: 09/19/2016 Time Performed: 15:23:16 PTAGE: 65 years EKG: Sinus rhythm Poor R wave progression - probable normal variant Borderline ECG Since PREVIOUS TRACING , no significant change noted PREVIOUS TRACIN05/04/2005 11.46 DOCTOR: Sarah Akins Interpretating Date/Time 09/21/2016 07:00:13
--- NOTE | 2016-09-21 07:02 | EKG ---
Date Performed: 09/19/2016 Time Performed: 21:41:04 PTAGE: 65 years EKG: Sinus rhythm Possible anterior infarct - age undetermined Inferior T wave changes are nonspecific Low QRS voltage s in precordial leads Since previous tracing, no significant change noted Abnormal ECG PREVIOUS TRACING : 09/19/2016 18.04 DOCTOR: Sarah Akins Interpretating Date/Time 09/21/2016 07:00:28
--- NOTE | 2016-09-21 07:03 | EKG ---
Date Performed: 09/19/2016 Time Performed: 18:04:54 PTAGE: 65 years EKG: Sinus rhythm Poor R wave progression - probable normal variant Borderline ECG Since PREVIOUS TRACING , no significant change noted PREVIOUS TRACIN09/19/2016 15.23 DOCTOR: Sarah Akins Interpretating Date/Time 09/21/2016 07:01:04
--- NOTE | 2016-09-21 07:03 | TR ---
Date Performed: 09/20/2016 Time Performed: 10:48:45 DOCTOR: Sarah Akins DRUG LIST: CLINICAL HISTORY: REASON FOR TEST: Chest pain REASON FOR ENDING: OBSERVATION: CONCLUSION: Lexiscan stress test was performed under standard four minute protocol. Radionuclid e was injected one minute prior to ending the test. No electrocardiographic abormalities were present to suggest ischemia. Nuclear imaging and interpretation are pending. COMMENTS:
[2016-09-21] MEDS: ASPIRIN 81 MG CHEW TAB CHEW SCH (08:57)
[2016-09-21] MEDS: METOPROLOL TARTRATE 25 MG TAB PO SCH ×2 (08:57→21:22)
[2016-09-21] MEDS: SODIUM CHLORIDE 0.9% FLUSH 10 ML FLUSH IV FLUSH SCH ×2 (08:58→21:22)
--- NOTE | 2016-09-21 09:35 | HHI.PR ---
Subjective Remarks PT complaining of severe dizziness. States that she thinks it is related to her new BP meds. She admits to a prior hx of vertigo but states that this is different and she feels dizzy. no nausea or vomiting associate w it. hasn't eaten breakfast yet but has ordered. no prior hx of diabetes Objective Vitals Vital Signs Date Time Temp Pulse Resp B/P Pulse Ox O2 Delivery O2 Flow Rate FiO2 09/21/16 06:00 63 09/21/16 05:00 63 09/21/16 04:00 58 09/21/16 03:00 97.9 65 16 120/50 96 09/21/16 03:00 60 09/21/16 02:00 60 09/21/16 01:00 66 09/21/16 00:00 67 09/20/16 23:30 97.9 66 18 132/65 94 09/20/16 23:00 69 09/20/16 22:00 73 09/20/16 21:00 69 09/20/16 20:00 98.4 64 18 153/71 96 09/20/16 20:00 68 09/20/16 19:00 65 09/20/16 18:42 97.8 67 18 150/71 94 09/20/16 12:00 95.8 63 18 150/85 94 189/82 165/59 I/O 09/20/16 09/20/16 09/20/16 09/21/16 09/21/16 09/21/16 07:00 15:00 23:00 07:00 15:00 23:00 Intake Total 300 ml 480 ml Output Total 400 ml Balance 300 ml 80 ml Intake Oral 300 ml 480 ml Output Urine Total 400 ml # Voids 6 1 # Bowel Movements 0 0 Result Diagram: 09/20/16 0615 09/20/16 0615 Imaging Last Impressions Myocardial Perfusion Scan Nuc Med 09/20/16 0000 Signed Impressions: Service Date/Time: Tuesday, September 20, 2016 10:16 - CONCLUSION: 1. Mild to moderate reversibility involving the apex suggesting ischemia. 2. Normal ejection fraction. RISK CATEGORY: Intermediate (1-3%% Annual Mortality Rate) Dhruv Tate MD CT Angiography 09/19/16 1628 Signed Impressions: Service Date/Time: Monday, September 19, 2016 16:43 - CONCLUSION: No evidence of pulmonary embolism Robin Tran MD Chest X-Ray 09/19/16 1543 Signed Impressions: Service Date/Time: Monday, September 19, 2016 15:55 - CONCLUSION: No acute disease. Robin Tran MD Objective Remarks GENERAL: This is a pleasant obese patient in no apparent distress. CARDIOVASCULAR: Regular rate and rhythm without murmurs RESPIRATORY: Clear to auscultation. Breath sounds equal bilaterally. No wheezes GASTROINTESTINAL: Normoactive bowel sounds. MUSCULOSKELETAL: No lower extremity edema bilaterally. NEUROLOGICAL: Awake and alert. Motor grossly within normal limits. Normal speech. A/P Problem List: (1) Chest pain ICD Code: R07.9 Status: Acute (2) Hypertensive urgency ICD Code: I16.0 Status: Acute Assessment and Plan 65-year-old female with: Chest pain: Chest x-ray without acute disease. CTA negative for pulmonary embolus. Chest pain could likely be attributed to hypertension. s/p cardiac cath which showed patent coronaries and preserved ejection fraction. Pt has been cleared by cards once BP's controlled however she has been feeling very dizzy since being started on the BP meds. She is diagnosed w DM hbA1C 7.0. I will d/c amlodipine and start her on lisinopril 20mg daily. decrease metoprolol dose to 12.5mg BID. Monitor BP's, perform orthostatic BP's as this could be the culprit, dizziness may also be side effects of meds. PT to evaluate and make d/ c recs. I have also consulted shop service technician to speak w pt and educate her on diabetic diet. Hypertensive urgency: -Metoprolol 12.5 mg every 12 hours and lisinopril 20mg po daily, consider increasing lisinopril to BID if needed. -continue Enalapril and clonidine every 6 hours as needed for SBP>160 and/or DBP >90. -Tylenol prn for MYERS -Xanax prn for anxiety Discharge Planning anticipate discharge later today or tomorrow if BP's controlled and dizziness improved. Pt has been encouraged to f/u w a PCP in the next few days for BP control and newly diagnosed DM. Problem Qualifiers (1) Chest pain: Qualified Code: R07.9 - Chest pain, unspecified type Tory Rosenthal MD September 21, 2016 09:35
[2016-09-21] MEDS: LISINOPRIL 20 MG TAB PO SCH (09:44)
[2016-09-21] MEDS ORDERED: PILL SPLITTER OTHER PRN (09:45)
--- NOTE | 2016-09-21 15:40 | PD.CARD.PN ---
Subjective Subjective Remarks No CP or SOB, c/o dizziness, BP better controlled Objective Medications Current Medications Medications (Trade) Dose Ordered Sig/Amanda Route Start Time Stop Time Status Last Admin (NS Flush) 2 ml UNSCH PRN IV FLUSH 09/19/16 17:30 (NS Flush) 2 ml BID IV FLUSH 09/19/16 21:00 09/21/16 08:58 (Zofran Inj) 4 mg Q6H PRN IVP 09/19/16 17:30 09/20/16 14:21 (Lovenox Inj) 40 mg Q24H SQ 09/19/16 18:00 09/20/16 18:57 (Narcan Inj) 0.4 mg UNSCH PRN IV 09/19/16 17:30 (Nitrostat Sl) 0.4 mg Q5M PRN SL 09/19/16 17:30 (Aspirin Chew) 81 mg DAILY CHEW 09/20/16 09:00 09/21/16 08:57 (Vasotec Inj) 1.25 mg Q6H PRN IV PUSH 09/19/16 18:15 (Catapres) 0.1 mg Q6H PRN PO 09/19/16 18:15 09/20/16 17:25 (Xanax) 0.25 mg Q6HR PRN PO 09/19/16 18:15 09/19/16 23:13 (Tylenol) 500 mg Q4H PRN PO 09/19/16 19:00 (Compazine Inj) 10 mg Q6H PRN IM 09/20/16 12:00 (Lipitor) 20 mg HS PO 09/20/16 21:00 09/20/16 21:09 (Lopressor) 12.5 mg Q12HR PO 09/21/16 21:00 (Prinivil) 20 mg DAILY PO 09/21/16 09:30 09/21/16 09:44 (Pill Splitter) 1 ea UNSCH PRN OTHER 09/21/16 09:45 Vital Signs / I&O Vital Signs Date Time Temp Pulse Resp B/P Pulse Ox O2 Delivery O2 Flow Rate FiO2 09/21/16 15:19 59 09/21/16 15:19 98.0 58 18 154/84 96 09/21/16 14:00 58 09/21/16 13:59 55 09/21/16 12:37 61 09/21/16 11:30 119/62 156/78 162/78 09/21/16 11:28 97.7 67 18 119/62 98 09/21/16 11:28 67 09/21/16 10:37 67 09/21/16 09:00 62 09/21/16 08:15 97.4 65 18 121/64 95 09/21/16 08:15 60 09/21/16 06:00 63 09/21/16 05:00 63 09/21/16 04:00 58 09/21/16 03:00 97.9 65 16 120/50 96 09/21/16 03:00 60 09/21/16 02:00 60 09/21/16 01:00 66 09/21/16 00:00 67 09/20/16 23:30 97.9 66 18 132/65 94 09/20/16 23:00 69 09/20/16 22:00 73 09/20/16 21:00 69 09/20/16 20:00 98.4 64 18 153/71 96 09/20/16 20:00 68 09/20/16 19:00 65 09/20/16 18:42 97.8 67 18 150/71 94 I/O 09/20/16 09/20/16 09/20/16 09/21/16 09/21/16 09/21/16 07:00 15:00 23:00 07:00 15:00 23:00 Intake Total 300 ml 480 ml Output Total 400 ml Balance 300 ml 80 ml Intake Oral 300 ml 480 ml Output Urine Total 400 ml # Voids 6 1 # Bowel Movements 0 0 Physical Exam GENERAL: In NAD SKIN: Warm and dry. HEAD: Normocephalic. EYES: No scleral icterus. No injection or drainage. NECK: Supple, trachea midline. No JVD or lymphadenopathy. CARDIOVASCULAR: Regular rate and rhythm without murmurs, gallops, or rubs. RESPIRATORY: Breath sounds equal bilaterally. No accessory muscle use. GASTROINTESTINAL: Abdomen soft, non-tender, nondistended. MUSCULOSKELETAL: No cyanosis, or edema. Groin stable Laboratory Laboratory Tests Test 09/19/16 09/19/16 09/20/16 15:48 21:48 06:15 Prothrombin Time 10.0 SEC Prothromb Time International 0.9 RATIO Ratio Activated Partial 25.3 SEC Thromboplast Time D-Dimer Quantitative (PE/DVT) 0.64 MG/L FEU Magnesium Level 2.5 MG/DL Total Bilirubin 0.3 MG/DL Aspartate Amino Transf 17 U/L (AST/SGOT) Alanine Aminotransferase 29 U/L (ALT/SGPT) Alkaline Phosphatase 52 U/L Total Protein 7.7 GM/DL Albumin 3.4 GM/DL Total Creatine Kinase 61 U/L Troponin I LESS THAN 0.02 NG/ML White Blood Count 7.3 TH/MM3 Red Blood Count 4.83 MIL/MM3 Hemoglobin 14.0 GM/DL Hematocrit 42.3 % Mean Corpuscular Volume 87.6 FL Mean Corpuscular Hemoglobin 29.0 PG Mean Corpuscular Hemoglobin 33.1 % Concent Red Cell Distribution Width 12.1 % Platelet Count 264 TH/MM3 Mean Platelet Volume 7.9 FL Neutrophils (%) (Auto) 52.4 % Lymphocytes (%) (Auto) 33.8 % Monocytes (%) (Auto) 9.1 % Eosinophils (%) (Auto) 4.0 % Basophils (%) (Auto) 0.7 % Neutrophils # (Auto) 3.7 TH/MM3 Lymphocytes # (Auto) 2.5 TH/MM3 Monocytes # (Auto) 0.7 TH/MM3 Eosinophils # (Auto) 0.3 TH/MM3 Basophils # (Auto) 0.1 TH/MM3 CBC Comment DIFF FINAL Differential Comment Sodium Level 141 MEQ/L Potassium Level 3.8 MEQ/L Chloride Level 105 MEQ/L Carbon Dioxide Level 27.2 MEQ/L Anion Gap 9 MEQ/L Blood Urea Nitrogen 12 MG/DL Creatinine 0.74 MG/DL Estimat Glomerular Filtration 79 ML/MIN Rate Random Glucose 155 MG/DL Hemoglobin A1c 7.0 % Calcium Level 8.8 MG/DL Triglycerides Level 136 MG/DL Cholesterol Level 185 MG/DL LDL Cholesterol 118 MG/DL HDL Cholesterol 40.1 MG/DL Cholesterol/HDL Ratio 4.61 RATIO Imaging Last Impressions Myocardial Perfusion Scan Nuc Med 09/20/16 0000 Signed Impressions: Service Date/Time: Tuesday, September 20, 2016 10:16 - CONCLUSION: 1. Mild to moderate reversibility involving the apex suggesting ischemia. 2. Normal ejection fraction. RISK CATEGORY: Intermediate (1-3%% Annual Mortality Rate) Dhruv Tate MD CT Angiography 09/19/16 1628 Signed Impressions: Service Date/Time: Monday, September 19, 2016 16:43 - CONCLUSION: No evidence of pulmonary embolism Robin Tran MD Chest X-Ray 09/19/16 1543 Signed Impressions: Service Date/Time: Monday, September 19, 2016 15:55 - CONCLUSION: No acute disease. Robin Tran MD Assessment and Plan Problem List: (1) Chest pain (2) Hypertensive urgency (3) Obesity Assessment and Plan Cath with patent cors and nl LV fx. Continue and titrate antihypertensive tx. Increase activity. Home once BP controlled and dizziness improved. F/u w PCP. Problem Qualifiers (1) Chest pain: Qualified Code: R07.9 - Chest pain, unspecified type Ny Sanchez MD September 21, 2016 15:40
[2016-09-21] MEDS ORDERED: DEXTROSE 50% IN WATER 50 ML VIAL(D50) IV PRN (16:45)
[2016-09-21] MEDS ORDERED: DOCUSATE SODIUM 50 MG/SENNA 8.6 MG TAB PO PRN (16:45)
[2016-09-21] MEDS ORDERED: GLUCAGON 1 MG/ML VIAL OTHER PRN (16:45)
[2016-09-21] MEDS ORDERED: MAGNESIUM HYDROXIDE SUSP 30 ML CUP PO PRN (16:45)
[2016-09-21] MEDS: metFORMIN HCL 500 MG TAB PO SCH (18:00)
[2016-09-21] MEDS: ENOXAPARIN SODIUM 40 MG/0.4 ML SYRINGE SQ SCH (18:00)
[2016-09-21] MEDS: INSULIN ASPART SUPPLEMENTAL SCALE SQ SCH (21:00)
[2016-09-21] MEDS: ATORVASTATIN 20 MG TAB PO SCH (21:22)
[2016-09-22] VITALS (29 sets, daily range): BP systolic 138–170; BP diastolic 54–76; PULSE 50–82; RESP 16–20; TEMP 97.9–98.6; O2SAT 96–99
[2016-09-22 06:29] LABS: BICARBONATE 25.7 MEQ/L (21.0-32.0); POTASSIUM 5.8 MEQ/L (3.5-5.1)
[2016-09-22] MEDS: INSULIN ASPART SUPPLEMENTAL SCALE SQ SCH ×4 (06:42→21:00)
--- NOTE | 2016-09-22 08:04 | HHI.PR ---
Subjective Remarks Pt continues to feel dizzy this morning but somewhat improved compared to yesterday. no nausea or vomiting, no CP/SOB/Palpitations Objective Vitals Vital Signs Date Time Temp Pulse Resp B/P Pulse Ox O2 Delivery O2 Flow Rate FiO2 09/22/16 06:13 59 09/22/16 05:25 50 09/22/16 04:30 98.5 64 20 138/54 96 09/22/16 04:04 57 09/22/16 03:00 64 09/22/16 02:09 64 09/22/16 01:00 59 09/22/16 00:00 64 09/22/16 00:00 98.6 61 20 148/64 96 09/21/16 23:00 64 09/21/16 22:00 64 09/21/16 21:00 62 09/21/16 20:00 64 09/21/16 20:00 98.8 65 20 178/77 96 09/21/16 19:00 58 09/21/16 18:04 60 09/21/16 17:07 61 09/21/16 16:15 68 09/21/16 15:19 59 09/21/16 15:19 98.0 58 18 154/84 96 09/21/16 14:00 58 09/21/16 13:59 55 09/21/16 12:37 61 09/21/16 11:30 119/62 156/78 162/78 09/21/16 11:28 97.7 67 18 119/62 98 09/21/16 11:28 67 09/21/16 10:37 67 09/21/16 09:00 62 09/21/16 08:15 97.4 65 18 121/64 95 09/21/16 08:15 60 I/O 09/21/16 09/21/16 09/21/16 09/22/16 09/22/16 09/22/16 07:00 15:00 23:00 07:00 15:00 23:00 Intake Total 480 ml 480 ml 460 ml Output Total 400 ml 750 ml 300 ml Balance 80 ml -270 ml 160 ml Intake Oral 480 ml 480 ml 460 ml Output Urine Total 400 ml 750 ml 300 ml # Bowel Movements 0 1 0 Result Diagram: 09/20/16 0615 09/22/16 0431 Imaging Last Impressions Myocardial Perfusion Scan Nuc Med 09/20/16 0000 Signed Impressions: Service Date/Time: Tuesday, September 20, 2016 10:16 - CONCLUSION: 1. Mild to moderate reversibility involving the apex suggesting ischemia. 2. Normal ejection fraction. RISK CATEGORY: Intermediate (1-3%% Annual Mortality Rate) Dhruv Tate MD CT Angiography 09/19/16 1628 Signed Impressions: Service Date/Time: Monday, September 19, 2016 16:43 - CONCLUSION: No evidence of pulmonary embolism Robin Tran MD Chest X-Ray 09/19/16 1543 Signed Impressions: Service Date/Time: Monday, September 19, 2016 15:55 - CONCLUSION: No acute disease. Robin Tran MD Objective Remarks GENERAL: This is a pleasant obese patient in no apparent distress. CARDIOVASCULAR: Regular rate and rhythm without murmurs RESPIRATORY: Clear to auscultation. Breath sounds equal bilaterally. No wheezes GASTROINTESTINAL: Normoactive bowel sounds. MUSCULOSKELETAL: No lower extremity edema bilaterally. NEUROLOGICAL: Awake and alert. Motor grossly within normal limits. Normal speech. A/P Problem List: (1) Chest pain ICD Code: R07.9 Status: Acute (2) Hypertensive urgency ICD Code: I16.0 Status: Acute Assessment and Plan 65-year-old female with: Chest pain: Chest x-ray without acute disease. CTA negative for pulmonary embolus. Chest pain could likely be attributed to hypertension. s/p cardiac cath which showed patent coronaries and preserved ejection fraction. Pt has been cleared by cards once BP's controlled however she has been feeling very dizzy since being started on the BP meds. She is diagnosed w DM hbA1C 7.0. the amlodipine was switched to lisinopril 20mg daily for kidney protection. metoprolol dose has already been decreased to 12.5mg BID. SBP are in the 130's, orthostatic BP neg, dizziness most likely is from side effects of BP meds. PT evaluated the pt and recommended rolling walker and home health PT. I have also consulted manager skilled to speak w pt and educate her on diabetic diet. Hypertensive urgency: -Metoprolol 12.5 mg every 12 hours and lisinopril 20mg po daily, consider increasing lisinopril to BID if needed. -continue Enalapril and clonidine every 6 hours as needed for SBP>160 and/or DBP >90. -Tylenol prn for MYERS -Xanax prn for anxiety Discharge Planning anticipate discharge later today or tomorrow if BP's controlled and dizziness improved. Pt has been encouraged to f/u w a PCP in the next few days for BP control and newly diagnosed DM. Problem Qualifiers (1) Chest pain: Qualified Code: R07.9 - Chest pain, unspecified type Tory Rosenthal MD September 22, 2016 08:04
[2016-09-22] MEDS: SODIUM CHLORIDE 0.9% FLUSH 10 ML FLUSH IV FLUSH SCH ×2 (09:00→21:00)
[2016-09-22] MEDS: ASPIRIN 81 MG CHEW TAB CHEW SCH (10:34)
[2016-09-22] MEDS: metFORMIN HCL 500 MG TAB PO SCH ×2 (10:35→18:06)
[2016-09-22] MEDS: METOPROLOL TARTRATE 25 MG TAB PO SCH ×2 (10:35→21:52)
[2016-09-22] MEDS: LISINOPRIL 20 MG TAB PO SCH (10:35)
[2016-09-22] MEDS: POLYETHYLENE GLYCOL 17 GM PKG PO SCH (10:39)
[2016-09-22] MEDS: MECLIZINE HCL 25 MG TAB PO SCH ×2 (15:49→21:52)
--- NOTE | 2016-09-22 16:55 | PD.CARD.PN ---
Subjective Subjective Remarks No CP or SOB, less dizzy Objective Medications Current Medications Medications (Trade) Dose Ordered Sig/Amanda Route Start Time Stop Time Status Last Admin (NS Flush) 2 ml UNSCH PRN IV FLUSH 09/19/16 17:30 (NS Flush) 2 ml BID IV FLUSH 09/19/16 21:00 09/22/16 09:00 (Zofran Inj) 4 mg Q6H PRN IVP 09/19/16 17:30 09/20/16 14:21 (Lovenox Inj) 40 mg Q24H SQ 09/19/16 18:00 09/21/16 18:00 (Narcan Inj) 0.4 mg UNSCH PRN IV 09/19/16 17:30 (Nitrostat Sl) 0.4 mg Q5M PRN SL 09/19/16 17:30 (Aspirin Chew) 81 mg DAILY CHEW 09/20/16 09:00 09/22/16 10:34 (Vasotec Inj) 1.25 mg Q6H PRN IV PUSH 09/19/16 18:15 (Catapres) 0.1 mg Q6H PRN PO 09/19/16 18:15 09/20/16 17:25 (Xanax) 0.25 mg Q6HR PRN PO 09/19/16 18:15 09/19/16 23:13 (Tylenol) 500 mg Q4H PRN PO 09/19/16 19:00 (Compazine Inj) 10 mg Q6H PRN IM 09/20/16 12:00 (Lipitor) 20 mg HS PO 09/20/16 21:00 09/21/16 21:22 (Lopressor) 12.5 mg Q12HR PO 09/21/16 21:00 09/22/16 10:35 (Prinivil) 20 mg DAILY PO 09/21/16 09:30 09/22/16 10:35 (Pill Splitter) 1 ea UNSCH PRN OTHER 09/21/16 09:45 (Miralax) 17 gm DAILY PO 09/22/16 09:00 (Li-Colace) 1 tab BID PRN PO 09/21/16 16:45 (Milk Of Magnesia Liq) 30 ml DAILY PRN PO 09/21/16 16:45 (Glucophage) 500 mg BIDPC PO 09/21/16 18:00 09/22/16 10:35 (D50w (Vial) Inj) 50 ml UNSCH PRN IV 09/21/16 16:45 (Glucagon Inj) 1 mg UNSCH PRN OTHER 09/21/16 16:45 (Antivert) 25 mg Q8HR PO 09/22/16 15:00 09/22/16 15:49 Vital Signs / I&O Vital Signs Date Time Temp Pulse Resp B/P Pulse Ox O2 Delivery O2 Flow Rate FiO2 09/22/16 15:52 98.2 56 16 146/72 98 09/22/16 12:00 97.9 65 18 140/63 97 09/22/16 09:13 97.9 62 16 140/63 97 09/22/16 06:13 59 09/22/16 05:25 50 09/22/16 04:30 98.5 64 20 138/54 96 09/22/16 04:04 57 09/22/16 03:00 64 09/22/16 02:09 64 09/22/16 01:00 59 09/22/16 00:00 64 09/22/16 00:00 98.6 61 20 148/64 96 09/21/16 23:00 64 09/21/16 22:00 64 09/21/16 21:00 62 09/21/16 20:00 64 09/21/16 20:00 98.8 65 20 178/77 96 09/21/16 19:00 58 09/21/16 18:04 60 09/21/16 17:07 61 I/O 09/21/16 09/21/16 09/21/16 09/22/16 09/22/16 09/22/16 07:00 15:00 23:00 07:00 15:00 23:00 Intake Total 480 ml 480 ml 460 ml Output Total 400 ml 750 ml 300 ml Balance 80 ml -270 ml 160 ml Intake Oral 480 ml 480 ml 460 ml Output Urine Total 400 ml 750 ml 300 ml # Bowel Movements 0 1 0 Physical Exam GENERAL: In NAD SKIN: Warm and dry. HEAD: Normocephalic. EYES: No scleral icterus. No injection or drainage. NECK: Supple, trachea midline. No JVD or lymphadenopathy. CARDIOVASCULAR: Regular rate and rhythm without murmurs, gallops, or rubs. RESPIRATORY: Breath sounds equal bilaterally. No accessory muscle use. GASTROINTESTINAL: Abdomen soft, non-tender, nondistended. MUSCULOSKELETAL: No cyanosis, or edema. Groin stable Laboratory Laboratory Tests Test 09/22/16 09/22/16 04:31 10:31 Sodium Level 140 MEQ/L Potassium Level 5.8 MEQ/L 3.9 MEQ/L Chloride Level 106 MEQ/L Carbon Dioxide Level 25.7 MEQ/L Anion Gap 8 MEQ/L Blood Urea Nitrogen 13 MG/DL Creatinine 0.82 MG/DL Estimat Glomerular Filtration 70 ML/MIN Rate Random Glucose 119 MG/DL Calcium Level 8.7 MG/DL Imaging Last Impressions Myocardial Perfusion Scan Nuc Med 09/20/16 0000 Signed Impressions: Service Date/Time: Tuesday, September 20, 2016 10:16 - CONCLUSION: 1. Mild to moderate reversibility involving the apex suggesting ischemia. 2. Normal ejection fraction. RISK CATEGORY: Intermediate (1-3%% Annual Mortality Rate) Dhruv Tate MD CT Angiography 09/19/16 1628 Signed Impressions: Service Date/Time: Monday, September 19, 2016 16:43 - CONCLUSION: No evidence of pulmonary embolism Robin Tran MD Chest X-Ray 09/19/16 1543 Signed Impressions: Service Date/Time: Monday, September 19, 2016 15:55 - CONCLUSION: No acute disease. Robin Tran MD Assessment and Plan Problem List: (1) Chest pain (2) Hypertensive urgency (3) Obesity Assessment and Plan No new cardiac issues. BP improving. Cath with patent cors and nl LV fx. Continue and titrate antihypertensive tx. Increase activity. Home once BP controlled and dizziness improved. F/u w PCP. Problem Qualifiers (1) Chest pain: Qualified Code: R07.9 - Chest pain, unspecified type Ny Sanchez MD September 22, 2016 16:55
[2016-09-22] MEDS: ENOXAPARIN SODIUM 40 MG/0.4 ML SYRINGE SQ SCH (18:05)
[2016-09-22] MEDS: ATORVASTATIN 20 MG TAB PO SCH (21:52)
[2016-09-23] VITALS (26 sets, daily range): BP systolic 130–171; BP diastolic 55–89; PULSE 54–79; RESP 16–20; TEMP 97.9–98.3; O2SAT 96–99
[2016-09-23] MEDS: INSULIN ASPART SUPPLEMENTAL SCALE SQ SCH ×4 (06:47→20:33)
[2016-09-23] MEDS: MECLIZINE HCL 25 MG TAB PO SCH ×3 (06:47→21:09)
[2016-09-23] MEDS: POLYETHYLENE GLYCOL 17 GM PKG PO SCH (09:00)
[2016-09-23] MEDS: SODIUM CHLORIDE 0.9% FLUSH 10 ML FLUSH IV FLUSH SCH ×2 (09:00→21:11)
[2016-09-23] MEDS: metFORMIN HCL 500 MG TAB PO SCH ×2 (09:38→17:41)
[2016-09-23] MEDS: LISINOPRIL 20 MG TAB PO SCH ×2 (09:38→17:29)
[2016-09-23] MEDS: ASPIRIN 81 MG CHEW TAB CHEW SCH (09:38)
[2016-09-23] MEDS: METOPROLOL TARTRATE 25 MG TAB PO SCH ×2 (09:38→21:09)
--- NOTE | 2016-09-23 10:15 | HHI.PR ---
Subjective Remarks Pt evaluated earlier this morning. states that the dizziness has resolved but now complains of vertigo. she does have a hx of vertigo 5 years ago but that had resolved on its own. She thinks that the meclizine has helped. Denies any CP /SOB/N/V. Denies any ringing in her ear. Objective Vitals Vital Signs Date Time Temp Pulse Resp B/P Pulse Ox O2 Delivery O2 Flow Rate FiO2 09/23/16 07:21 97.9 60 16 134/67 96 09/23/16 05:00 56 09/23/16 04:00 56 09/23/16 03:33 98.2 56 16 163/64 99 09/23/16 03:00 57 09/23/16 02:00 66 09/23/16 01:00 62 09/23/16 00:00 64 09/22/16 23:30 98.5 62 16 165/76 99 09/22/16 23:00 66 09/22/16 22:00 64 09/22/16 21:00 76 09/22/16 20:00 64 09/22/16 19:25 98.2 68 16 170/62 99 09/22/16 19:00 66 09/22/16 18:00 82 09/22/16 17:00 58 09/22/16 16:00 58 09/22/16 15:52 98.2 56 16 146/72 98 09/22/16 15:00 66 09/22/16 14:00 66 09/22/16 13:00 56 09/22/16 12:00 56 09/22/16 12:00 97.9 65 18 140/63 97 09/22/16 11:00 68 I/O 09/22/16 09/22/16 09/22/16 09/23/16 09/23/16 09/23/16 07:00 15:00 23:00 07:00 15:00 23:00 Intake Total 460 ml 450 ml 240 ml Output Total 300 ml 600 ml 750 ml Balance 160 ml -150 ml -510 ml Intake Oral 460 ml 450 ml 240 ml IV Total 0 ml Output Urine Total 300 ml 600 ml 750 ml # Bowel Movements 0 0 Result Diagram: 09/20/16 0615 09/22/16 1031 Imaging Last Impressions Myocardial Perfusion Scan Nuc Med 09/20/16 0000 Signed Impressions: Service Date/Time: Tuesday, September 20, 2016 10:16 - CONCLUSION: 1. Mild to moderate reversibility involving the apex suggesting ischemia. 2. Normal ejection fraction. RISK CATEGORY: Intermediate (1-3%% Annual Mortality Rate) Dhruv Tate MD CT Angiography 09/19/16 1628 Signed Impressions: Service Date/Time: Monday, September 19, 2016 16:43 - CONCLUSION: No evidence of pulmonary embolism Robin Tran MD Chest X-Ray 09/19/16 1543 Signed Impressions: Service Date/Time: Monday, September 19, 2016 15:55 - CONCLUSION: No acute disease. Robin Tran MD Objective Remarks GENERAL: This is a pleasant obese patient in no apparent distress. CARDIOVASCULAR: Regular rate and rhythm without murmurs RESPIRATORY: Clear to auscultation. Breath sounds equal bilaterally. No wheezes GASTROINTESTINAL: Normoactive bowel sounds. MUSCULOSKELETAL: No lower extremity edema bilaterally. NEUROLOGICAL: Awake and alert. Motor grossly within normal limits. Normal speech. A/P Problem List: (1) Chest pain ICD Code: R07.9 Status: Acute (2) Hypertensive urgency ICD Code: I16.0 Status: Acute Assessment and Plan 65-year-old female with: Chest pain: Chest x-ray without acute disease. CTA negative for pulmonary embolus. Chest pain could likely be attributed to hypertension. s/p cardiac cath which showed patent coronaries and preserved ejection fraction. Pt has been cleared by cards once BP's controlled however she has been feeling very dizzy since being started on the BP meds. She is diagnosed w DM hbA1C 7.0. on lisinopril 20mg daily for kidney protection. metoprolol dose has already been decreased to 12.5mg BID. SBP are in the 130's, orthostatic BP neg, dizziness most likely is from side effects of BP meds which have now resolved. now pt complaining of vertigo. I personally spoke w PT and have requested that they show pt some vestibular exercises as I suspect that she may have some inner ear problems causing her vertigo. she has a prior hx of vertigo 5 years ago. She is on meclizine 25mg po TID however I do not want to increase the dose as pt seems to be very sensitive to meds in general. She will need a rolling walker and home health PT. I have also consulted registered public health nurse to speak w pt and educate her on diabetic diet. Hypertensive urgency: much improved -Metoprolol 12.5 mg every 12 hours and lisinopril 20mg po daily, consider increasing lisinopril to BID if needed. -continue Enalapril and clonidine every 6 hours as needed for SBP>160 and/or DBP >90. -Tylenol prn for MYERS -Xanax prn for anxiety Discharge Planning anticipate discharge later today or tomorrow if BP's controlled and dizziness resolved and vertigo improved. Pt has been encouraged to f/u w a PCP in the next few days for BP control, vertigo and newly diagnosed DM Problem Qualifiers (1) Chest pain: Qualified Code: R07.9 - Chest pain, unspecified type Tory Rosenthal MD September 23, 2016 10:15
--- NOTE | 2016-09-23 12:36 | PD.CARD.PN ---
Subjective Subjective Remarks No CP or SOB, dizziness improved Objective Medications Current Medications Medications (Trade) Dose Ordered Sig/Amanda Route Start Time Stop Time Status Last Admin (NS Flush) 2 ml UNSCH PRN IV FLUSH 09/19/16 17:30 (NS Flush) 2 ml BID IV FLUSH 09/19/16 21:00 09/23/16 09:00 (Zofran Inj) 4 mg Q6H PRN IVP 09/19/16 17:30 09/20/16 14:21 (Lovenox Inj) 40 mg Q24H SQ 09/19/16 18:00 09/22/16 18:05 (Narcan Inj) 0.4 mg UNSCH PRN IV 09/19/16 17:30 (Nitrostat Sl) 0.4 mg Q5M PRN SL 09/19/16 17:30 (Aspirin Chew) 81 mg DAILY CHEW 09/20/16 09:00 09/23/16 09:38 (Vasotec Inj) 1.25 mg Q6H PRN IV PUSH 09/19/16 18:15 (Catapres) 0.1 mg Q6H PRN PO 09/19/16 18:15 09/20/16 17:25 (Xanax) 0.25 mg Q6HR PRN PO 09/19/16 18:15 09/19/16 23:13 (Tylenol) 500 mg Q4H PRN PO 09/19/16 19:00 (Compazine Inj) 10 mg Q6H PRN IM 09/20/16 12:00 (Lipitor) 20 mg HS PO 09/20/16 21:00 09/22/16 21:52 (Lopressor) 12.5 mg Q12HR PO 09/21/16 21:00 09/23/16 09:38 (Prinivil) 20 mg DAILY PO 09/21/16 09:30 09/23/16 09:38 (Pill Splitter) 1 ea UNSCH PRN OTHER 09/21/16 09:45 (Miralax) 17 gm DAILY PO 09/22/16 09:00 (Li-Colace) 1 tab BID PRN PO 09/21/16 16:45 (Milk Of Magnesia Liq) 30 ml DAILY PRN PO 09/21/16 16:45 (Glucophage) 500 mg BIDPC PO 09/21/16 18:00 09/23/16 09:38 (D50w (Vial) Inj) 50 ml UNSCH PRN IV 09/21/16 16:45 (Glucagon Inj) 1 mg UNSCH PRN OTHER 09/21/16 16:45 (Antivert) 25 mg Q8HR PO 09/22/16 15:00 09/23/16 06:47 Vital Signs / I&O Vital Signs Date Time Temp Pulse Resp B/P Pulse Ox O2 Delivery O2 Flow Rate FiO2 09/23/16 07:21 97.9 60 16 134/67 96 09/23/16 05:00 56 09/23/16 04:00 56 09/23/16 03:33 98.2 56 16 163/64 99 09/23/16 03:00 57 09/23/16 02:00 66 09/23/16 01:00 62 09/23/16 00:00 64 09/22/16 23:30 98.5 62 16 165/76 99 09/22/16 23:00 66 09/22/16 22:00 64 09/22/16 21:00 76 09/22/16 20:00 64 09/22/16 19:25 98.2 68 16 170/62 99 09/22/16 19:00 66 09/22/16 18:00 82 09/22/16 17:00 58 09/22/16 16:00 58 09/22/16 15:52 98.2 56 16 146/72 98 09/22/16 15:00 66 09/22/16 14:00 66 09/22/16 13:00 56 I/O 09/22/16 09/22/16 09/22/16 09/23/16 09/23/16 09/23/16 07:00 15:00 23:00 07:00 15:00 23:00 Intake Total 460 ml 450 ml 240 ml Output Total 300 ml 600 ml 750 ml Balance 160 ml -150 ml -510 ml Intake Oral 460 ml 450 ml 240 ml IV Total 0 ml Output Urine Total 300 ml 600 ml 750 ml # Bowel Movements 0 0 Physical Exam GENERAL: In NAD SKIN: Warm and dry. HEAD: Normocephalic. EYES: No scleral icterus. No injection or drainage. NECK: Supple, trachea midline. No JVD or lymphadenopathy. CARDIOVASCULAR: Regular rate and rhythm without murmurs, gallops, or rubs. RESPIRATORY: Breath sounds equal bilaterally. No accessory muscle use. GASTROINTESTINAL: Abdomen soft, non-tender, nondistended. MUSCULOSKELETAL: No cyanosis, or edema. Groin stable Laboratory Laboratory Tests Test 09/19/16 09/19/16 09/20/16 09/22/16 15:48 21:48 06:15 04:31 Prothrombin Time 10.0 SEC Prothromb Time International 0.9 RATIO Ratio Activated Partial 25.3 SEC Thromboplast Time D-Dimer Quantitative (PE/DVT) 0.64 MG/L FEU Magnesium Level 2.5 MG/DL Total Bilirubin 0.3 MG/DL Aspartate Amino Transf 17 U/L (AST/SGOT) Alanine Aminotransferase 29 U/L (ALT/SGPT) Alkaline Phosphatase 52 U/L Total Protein 7.7 GM/DL Albumin 3.4 GM/DL Total Creatine Kinase 61 U/L Troponin I LESS THAN 0.02 NG/ML White Blood Count 7.3 TH/MM3 Red Blood Count 4.83 MIL/MM3 Hemoglobin 14.0 GM/DL Hematocrit 42.3 % Mean Corpuscular Volume 87.6 FL Mean Corpuscular Hemoglobin 29.0 PG Mean Corpuscular Hemoglobin 33.1 % Concent Red Cell Distribution Width 12.1 % Platelet Count 264 TH/MM3 Mean Platelet Volume 7.9 FL Neutrophils (%) (Auto) 52.4 % Lymphocytes (%) (Auto) 33.8 % Monocytes (%) (Auto) 9.1 % Eosinophils (%) (Auto) 4.0 % Basophils (%) (Auto) 0.7 % Neutrophils # (Auto) 3.7 TH/MM3 Lymphocytes # (Auto) 2.5 TH/MM3 Monocytes # (Auto) 0.7 TH/MM3 Eosinophils # (Auto) 0.3 TH/MM3 Basophils # (Auto) 0.1 TH/MM3 CBC Comment DIFF FINAL Differential Comment Hemoglobin A1c 7.0 % Triglycerides Level 136 MG/DL Cholesterol Level 185 MG/DL LDL Cholesterol 118 MG/DL HDL Cholesterol 40.1 MG/DL Cholesterol/HDL Ratio 4.61 RATIO Sodium Level 140 MEQ/L Chloride Level 106 MEQ/L Carbon Dioxide Level 25.7 MEQ/L Anion Gap 8 MEQ/L Blood Urea Nitrogen 13 MG/DL Creatinine 0.82 MG/DL Estimat Glomerular Filtration 70 ML/MIN Rate Random Glucose 119 MG/DL Calcium Level 8.7 MG/DL Test 09/22/16 10:31 Potassium Level 3.9 MEQ/L Imaging Last Impressions Myocardial Perfusion Scan Nuc Med 09/20/16 0000 Signed Impressions: Service Date/Time: Tuesday, September 20, 2016 10:16 - CONCLUSION: 1. Mild to moderate reversibility involving the apex suggesting ischemia. 2. Normal ejection fraction. RISK CATEGORY: Intermediate (1-3%% Annual Mortality Rate) Dhruv Tate MD CT Angiography 09/19/16 1628 Signed Impressions: Service Date/Time: Monday, September 19, 2016 16:43 - CONCLUSION: No evidence of pulmonary embolism Robin Tran MD Chest X-Ray 09/19/16 1543 Signed Impressions: Service Date/Time: Monday, September 19, 2016 15:55 - CONCLUSION: No acute disease. Robin Tran MD Assessment and Plan Problem List: (1) Chest pain (2) Hypertensive urgency (3) Obesity Assessment and Plan No new cardiac issues. Dizzines improved. BP improving. Cath with patent cors and nl LV fx. Continue and titrate antihypertensive tx. Increase activity. OK to discharge home from cardiac standpoint. Problem Qualifiers (1) Chest pain: Qualified Code: R07.9 - Chest pain, unspecified type Ny Sanchez MD September 23, 2016 12:36
--- NOTE | 2016-09-23 14:55 | HHI.DS ---
Discharge Summary Admission Date September 20, 2016 at 13:15 Admitting Diagnosis Chest pain (1) Chest pain ICD Code: R07.9 Diagnosis: Principal (2) Hypertensive urgency ICD Code: I16.0 Diagnosis: Principal Brief History - From Admission Written by Magdalene Patel PA-C acting as scribe for Dr. Christopher on 09/19/16 at 1810. 65-year-old female with fibromyalgia, neck and shoulder pain, and remote history of breast cancer presents with complaint of chest pain. Patient states pain started yesterday evening in L shape on her left breast, side and top. She states it lasted 1-2 hours. She states this afternoon he reoccurred and she felt flutters" in her chest along with the same L shape pain for about an hour and then it changed to centralized chest pressure and felt heavy which lasted another 20 minutes. This prompted the patient to come to the ED. She denies any diaphoresis or associated shortness of breath but does admit to some nausea. Denies any vomiting. She does admit to occipital headache denies any visual changes. Her states her blood pressure today at home was 190 something/138. Patient states that she checks her blood pressure periodically and is never that high, but she has not seen a primary care physician in 10 years. CBC/BMP: 09/20/16 0615 09/22/16 1031 Significant Findings Laboratory Tests Test 09/22/16 04:31 Potassium Level 5.8 MEQ/L (3.5-5.1) Estimat Glomerular Filtration 70 ML/MIN (>89) Rate Random Glucose 119 MG/DL (74-106) PE at Discharge GENERAL: This is a pleasant obese patient in no apparent distress. CARDIOVASCULAR: Regular rate and rhythm without murmurs RESPIRATORY: Clear to auscultation. Breath sounds equal bilaterally. No wheezes GASTROINTESTINAL: Normoactive bowel sounds. MUSCULOSKELETAL: No lower extremity edema bilaterally. NEUROLOGICAL: Awake and alert. Motor grossly within normal limits. Normal speech. Discharge Disposition: Discharge Home Discharge Instructions DIET: Follow Instructions for: Heart Healthy Diet, Diabetic Diet Activities you can perform: Regular-No Restrictions Tory Rosenthal MD September 23, 2016 14:55
[2016-09-23] MEDS ORDERED: METO25TA3 PO (14:57)
[2016-09-23] MEDS ORDERED: MECL1TAB42 PO (14:57)
[2016-09-23] MEDS ORDERED: ASPI81CH25 CHEW (14:57)
[2016-09-23] MEDS ORDERED: ATOR20TA15 PO (14:57)
[2016-09-23] MEDS ORDERED: LISI-515 PO ×2 (14:57→17:04)
[2016-09-23] MEDS ORDERED: METF500 PO (14:57)
[2016-09-23] MEDS: cloNIDine HCL 0.1 MG TAB PO PRN (15:36)
[2016-09-23] MEDS ORDERED: LISINOPRIL 20 MG TAB PO ONE (17:15)
[2016-09-23] MEDS: ENOXAPARIN SODIUM 40 MG/0.4 ML SYRINGE SQ SCH (17:29)
[2016-09-23] MEDS: ATORVASTATIN 20 MG TAB PO SCH (21:09)
--- NOTE | 2016-09-23 21:46 | HHI.PR ---
Addendum to Inpatient Note Additional Information late entry I was notified earlier today that pt's SBP was 170 even after getting clonidine. I have increased her lisinopril to 20mg po BID. caution w increasing BP meds too quickly due to pt being sensitive to meds side effects i.e dizziness. Hopefully this new change in her BP meds will help better control her BPs and she can be discharge in the morning. Tory Rosenthal MD September 23, 2016 21:46
[2016-09-24] VITALS (29 sets, daily range): BP systolic 126–153; BP diastolic 52–80; PULSE 58–96; RESP 20; TEMP 97.9–98.3; O2SAT 93–98
[2016-09-24] MEDS: INSULIN ASPART SUPPLEMENTAL SCALE SQ SCH ×4 (06:03→21:00)
[2016-09-24] MEDS: MECLIZINE HCL 25 MG TAB PO SCH ×3 (06:40→21:28)
--- NOTE | 2016-09-24 07:07 | HHI.DS ---
Discharge Summary Admission Date September 20, 2016 at 13:15 Discharge Date: September 24, 2016 Admitting Diagnosis Chest pain (1) Chest pain ICD Code: R07.9 Diagnosis: Principal (2) Hypertensive urgency ICD Code: I16.0 Diagnosis: Principal Procedures cardiac cath Brief History - From Admission Written by Magdalene Patel PA-C acting as scribe for Dr. Christopher on 09/19/16 at 1810. 65-year-old female with fibromyalgia, neck and shoulder pain, and remote history of breast cancer presents with complaint of chest pain. Patient states pain started yesterday evening in L shape on her left breast, side and top. She states it lasted 1-2 hours. She states this afternoon he reoccurred and she felt flutters" in her chest along with the same L shape pain for about an hour and then it changed to centralized chest pressure and felt heavy which lasted another 20 minutes. This prompted the patient to come to the ED. She denies any diaphoresis or associated shortness of breath but does admit to some nausea. Denies any vomiting. She does admit to occipital headache denies any visual changes. Her states her blood pressure today at home was 190 something/138. Patient states that she checks her blood pressure periodically and is never that high, but she has not seen a primary care physician in 10 years. CBC/BMP: 09/20/16 0615 09/22/16 1031 Significant Findings Laboratory Tests Test 09/22/16 04:31 Potassium Level 5.8 MEQ/L (3.5-5.1) Estimat Glomerular Filtration 70 ML/MIN (>89) Rate Random Glucose 119 MG/DL (74-106) Imaging Last Impressions Myocardial Perfusion Scan Nuc Med 09/20/16 0000 Signed Impressions: Service Date/Time: Tuesday, September 20, 2016 10:16 - CONCLUSION: 1. Mild to moderate reversibility involving the apex suggesting ischemia. 2. Normal ejection fraction. RISK CATEGORY: Intermediate (1-3%% Annual Mortality Rate) Dhruv Tate MD CT Angiography 09/19/16 1628 Signed Impressions: Service Date/Time: Monday, September 19, 2016 16:43 - CONCLUSION: No evidence of pulmonary embolism Robin Tran MD Chest X-Ray 09/19/16 1543 Signed Impressions: Service Date/Time: Monday, September 19, 2016 15:55 - CONCLUSION: No acute disease. Robin Tran MD PE at Discharge GENERAL: This is a pleasant obese patient in no apparent distress. CARDIOVASCULAR: Regular rate and rhythm without murmurs RESPIRATORY: Clear to auscultation. Breath sounds equal bilaterally. No wheezes GASTROINTESTINAL: Normoactive bowel sounds. MUSCULOSKELETAL: No lower extremity edema bilaterally. NEUROLOGICAL: Awake and alert. Motor grossly within normal limits. Normal speech. Pt update on day of discharge Had diarrhea last night. None since then/ Says she was eating breakfast without any probelms. No diarrhea , no abd pain. Denies chest pain, n/v. No fever or chills. Hospital Course 65-year-old female with: Chest pain: Chest x-ray without acute disease. CTA negative for pulmonary embolus. Chest pain could likely be attributed to hypertension. s/p cardiac cath which showed patent coronaries and preserved ejection fraction. Pt has been cleared by cards once BP's controlled however she has been feeling very dizzy since being started on the BP meds. She is diagnosed w DM hbA1C 7.0. on lisinopril 20mg daily for kidney protection. metoprolol dose has already been decreased to 12.5mg BID. SBP are in the 130's, orthostatic BP neg, dizziness most likely is from side effects of BP meds which have now resolved. now pt complaining of vertigo. I personally spoke w PT and have requested that they show pt some vestibular exercises as I suspect that she may have some inner ear problems causing her vertigo. she has a prior hx of vertigo 5 years ago. She is on meclizine 25mg po TID however I do not want to increase the dose as pt seems to be very sensitive to meds in general. She will need a rolling walker and home health PT. I have also consulted service provider to speak w pt and educate her on diabetic diet. Hypertensive urgency: much improved -Metoprolol 12.5 mg every 12 hours, lisinopril 20mg po increased to BID. BP beter controlled -continue Enalapril and clonidine every 6 hours as needed for SBP>160 and/or DBP >90. -Tylenol prn for MYERS -Xanax prn for anxiety Discharge Planning anticipate discharge later today or tomorrow if BP's controlled and dizziness resolved and vertigo improved. Pt has been encouraged to f/u w a PCP in the next few days for BP control, vertigo and newly diagnosed DM Improved, cleared by cardiology for DC. To follow up as OP with PCP and consultants, Pt Condition on Discharge: Stable Discharge Disposition: Disch w/ Home Health Serv Discharge Time: > 30 minutes Discharge Instructions DIET: Follow Instructions for: Heart Healthy Diet, Diabetic Diet Activities you can perform: Regular-No Restrictions Follow up Referrals: Cardiology - 2 Weeks with Ny Sanchez MD Physician - 1 Week New Medications: Walker Rolling/GetGo (Walker Rolling/GetGo) 1 Mis Mis 1 EA .ROUTE DIRECTED #1 EA Aspirin (Aspirin Low Strength) 81 Mg Chew 81 MG CHEW DAILY Days 30 EA Atorvastatin (Atorvastatin) 20 Mg Tab 20 MG PO HS Days 30 TAB Lisinopril (Lisinopril) 20 Mg Tab 20 MG PO BID Days 30 TAB Meclizine HCl (Meclizine 25) 25 Mg Tab 25 MG PO Q8HR Days 30 TAB Metformin (Glucophage) 500 Mg Tab 500 MG PO BIDPC Days 30 TAB Metoprolol Tartrate (Metoprolol Tartrate) 25 Mg Tab 12.5 MG PO Q12HR Days 30 TAB Malgorzata Chiang MD September 24, 2016 07:07
[2016-09-24] MEDS: METOPROLOL TARTRATE 25 MG TAB PO SCH ×2 (09:00→21:28)
[2016-09-24] MEDS: ASPIRIN 81 MG CHEW TAB CHEW SCH (09:00)
[2016-09-24] MEDS: POLYETHYLENE GLYCOL 17 GM PKG PO SCH (09:00)
[2016-09-24] MEDS: metFORMIN HCL 500 MG TAB PO SCH ×2 (09:00→17:51)
[2016-09-24] MEDS: SODIUM CHLORIDE 0.9% FLUSH 10 ML FLUSH IV FLUSH SCH ×2 (09:00→21:00)
[2016-09-24] MEDS: LISINOPRIL 20 MG TAB PO SCH ×2 (09:00→21:28)
[2016-09-24] MEDS ORDERED: LACTOBACILLUS ACIDOPHILUS TAB PO ONE (09:30)
--- NOTE | 2016-09-24 11:37 | HHI.FF ---
Face to Face Verification Diagnosis: (1) Abdominal pain (2) Elevated blood pressure (3) Chest pain (4) Hypertensive urgency (5) HTN (hypertension) (6) DM (diabetes mellitus) (7) Rosacea (8) Breast cancer (9) Pelvic pain (10) Obesity Physical Therapy Order: Evaluate and Treat Home Health Nursing Order: Medical education Signs/symptoms of disease process Medication education-adverse effect Nursing assessment with vital signs I have seen patient Dolores Gastelum on 09/24/16. My clinical findings support the need for the requested home health care services because: Ltd mobility - disease progression I certify that my clinical findings support that this patient is homebound because: Post-op weakness Malgorzata Chiang MD September 24, 2016 11:37
[2016-09-24] MEDS ORDERED: GETGO ROLLING W1 MI1 (11:39)
[2016-09-24] MEDS ORDERED: LACT PO (13:15)
[2016-09-24] MEDS: LOPERAMIDE HCL 2 MG CAP PO PRN (14:20)
[2016-09-24 17:46] LABS: C. DIFF EPI 027 PRESUMPTIVE NEGATIVE (NEGATIVE); C. DIFF TOXIN PCR NEGATIVE (NEGATIVE)
[2016-09-24] MEDS: ENOXAPARIN SODIUM 40 MG/0.4 ML SYRINGE SQ SCH (17:54)
--- NOTE | 2016-09-24 18:27 | HHI.PR ---
Subjective Remarks Had diarrhea last night. None since then. Says she was eating breakfast without any probelms. Denies having abd pain. Denies chest pain, n/v. No fever or chills.The patient was noted with diarrhea thereafter. She is having no nauea or vomiting. C diff ordered and pending. Will hold discharge. Objective Vitals Vital Signs Date Time Temp Pulse Resp B/P Pulse Ox O2 Delivery O2 Flow Rate FiO2 09/24/16 18:14 87 09/24/16 17:03 85 09/24/16 16:47 97.9 72 20 153/74 98 09/24/16 16:45 96 09/24/16 15:00 86 09/24/16 14:44 77 09/24/16 13:05 86 09/24/16 12:01 61 09/24/16 11:00 75 09/24/16 11:00 97.9 72 20 142/72 93 09/24/16 10:11 65 09/24/16 09:24 96 09/24/16 08:00 93 09/24/16 07:18 58 09/24/16 07:00 98.2 62 20 145/60 98 09/24/16 06:00 64 09/24/16 05:00 60 09/24/16 04:20 98.3 64 20 131/56 98 09/24/16 04:00 60 09/24/16 03:00 60 09/24/16 02:00 60 09/24/16 01:00 60 09/24/16 00:00 69 09/23/16 23:45 98.3 64 20 130/55 98 09/23/16 23:00 67 09/23/16 22:00 72 09/23/16 21:00 72 09/23/16 20:00 72 09/23/16 19:20 97.9 74 20 171/80 98 09/23/16 19:00 71 I/O 09/23/16 09/23/16 09/23/16 09/24/16 09/24/16 09/24/16 06:59 14:59 22:59 06:59 14:59 22:59 Intake Total 240 ml 720 ml 480 ml 750 ml Output Total 750 ml 700 ml 400 ml 650 ml Balance -510 ml 20 ml 80 ml 100 ml Intake Oral 240 ml 720 ml 480 ml 750 ml Output Urine Total 750 ml 700 ml 400 ml 650 ml # Bowel Movements 1 2 7 Result Diagram: 09/20/16 0615 09/22/16 1031 Imaging Last Impressions Myocardial Perfusion Scan Nuc Med 09/20/16 0000 Signed Impressions: Service Date/Time: Tuesday, September 20, 2016 10:16 - CONCLUSION: 1. Mild to moderate reversibility involving the apex suggesting ischemia. 2. Normal ejection fraction. RISK CATEGORY: Intermediate (1-3%% Annual Mortality Rate) Dhruv Tate MD CT Angiography 09/19/16 1628 Signed Impressions: Service Date/Time: Monday, September 19, 2016 16:43 - CONCLUSION: No evidence of pulmonary embolism Robin Tran MD Chest X-Ray 09/19/16 1543 Signed Impressions: Service Date/Time: Monday, September 19, 2016 15:55 - CONCLUSION: No acute disease. Robin Tran MD Objective Remarks GENERAL: 65 yo F, well nourished, well developed patient, appears in nad. SKIN: Warm and dry. HEAD: Atraumatic. Normocephalic. EYES: Pupils equal and round. No scleral icterus. No injection or drainage. ENT: No nasal bleeding or discharge. Mucous membranes pink and moist. NECK: Trachea midline. No JVD. CARDIOVASCULAR: Regular rate and rhythm. RESPIRATORY: No accessory muscle use. Clear to auscultation. Breath sounds equal bilaterally. GASTROINTESTINAL: Abdomen soft, obese, non-tender, nondistended. MUSCULOSKELETAL: Extremities without clubbing, cyanosis, or edema. No obvious deformities. NEUROLOGICAL: Awake and alert. No obvious cranial nerve deficits. Motor grossly within normal limits. Five out of 5 muscle strength in the arms and legs. Normal speech. PSYCHIATRIC: Appropriate mood and affect; insight and judgment normal. Procedures cardiac cath A/P Problem List: (1) Chest pain ICD Code: R07.9 Status: Acute (2) Hypertensive urgency ICD Code: I16.0 Status: Acute Assessment and Plan 65-year-old female with: Chest pain: Chest x-ray without acute disease. CTA negative for pulmonary embolus. Chest pain could likely be attributed to hypertension. s/p cardiac cath which showed patent coronaries and preserved ejection fraction. Pt has been cleared by cards once BP's controlled however she has been feeling very dizzy since being started on the BP meds. She is diagnosed w DM hbA1C 7.0. on lisinopril 20mg daily for kidney protection. metoprolol dose has already been decreased to 12.5mg BID. SBP are in the 130's, orthostatic BP neg, dizziness most likely is from side effects of BP meds which have now resolved. now pt complaining of vertigo. I personally spoke w PT and have requested that they show pt some vestibular exercises as I suspect that she may have some inner ear problems causing her vertigo. she has a prior hx of vertigo 5 years ago. She is on meclizine 25mg po TID however I do not want to increase the dose as pt seems to be very sensitive to meds in general. She will need a rolling walker and home health PT. I have also consulted computer game designer to speak w pt and educate her on diabetic diet. Hypertensive urgency: much improved -Metoprolol 12.5 mg every 12 hours, lisinopril 20mg po increased to BID. BP beter controlled -continue Enalapril and clonidine every 6 hours as needed for SBP>160 and/or DBP >90. -Tylenol prn for MYERS -Xanax prn for anxiety Diarrhea: start probiotics. C diff pending. Discharge Planning anticipate discharge later today or tomorrow if diarrhea subsides. Pt has been encouraged to f/u w a PCP in the next few days for BP control, vertigo and newly diagnosed DM Improved, cleared by cardiology for DC. To follow up as OP with PCP and consultants, Still with diarrhea. doesn't feel comfortable to go home. C diff pending. Hold DC Discussed with the patient, nurse. Problem Qualifiers (1) Chest pain: Qualified Code: R07.9 - Chest pain, unspecified type Malgorzata Chiang MD September 24, 2016 18:27
[2016-09-24] MEDS: LACTOBACILLUS ACIDOPHILUS TAB PO SCH (21:27)
[2016-09-24] MEDS: ATORVASTATIN 20 MG TAB PO SCH (21:28)
[2016-09-25] VITALS (18 sets, daily range): BP systolic 106–154; BP diastolic 66–75; PULSE 60–105; RESP 16–20; TEMP 98.1–98.7; O2SAT 94–98
[2016-09-25] MEDS: LOPERAMIDE HCL 2 MG CAP PO PRN (01:55)
[2016-09-25] MEDS: MECLIZINE HCL 25 MG TAB PO SCH ×2 (05:32→14:39)
[2016-09-25] MEDS: INSULIN ASPART SUPPLEMENTAL SCALE SQ SCH ×2 (05:32→11:00)
--- NOTE | 2016-09-25 07:20 | HHI.PR ---
Subjective Remarks With 9 x diarrhea since yesterday. C diff negative. Says last episode was 7 AM. Says she has abd cramps with diarrhea. Says she feels much better. Now. No fever or chills. No n/v/d/c. Denies chest pain or sob. Objective Vitals Vital Signs Date Time Temp Pulse Resp B/P Pulse Ox O2 Delivery O2 Flow Rate FiO2 09/25/16 06:00 68 09/25/16 05:00 71 09/25/16 04:00 71 09/25/16 03:22 98.1 105 20 106/75 98 09/25/16 03:00 76 09/25/16 02:00 78 09/25/16 00:00 71 09/24/16 23:01 97.9 74 20 126/80 98 09/24/16 23:00 76 09/24/16 22:00 88 09/24/16 21:00 88 09/24/16 20:00 96 09/24/16 19:35 98.1 95 20 132/52 98 09/24/16 19:00 87 09/24/16 18:14 87 09/24/16 17:03 85 09/24/16 16:47 97.9 72 20 153/74 98 09/24/16 16:45 96 09/24/16 15:00 86 09/24/16 14:44 77 09/24/16 13:05 86 09/24/16 12:01 61 09/24/16 11:00 75 09/24/16 11:00 97.9 72 20 142/72 93 09/24/16 10:11 65 09/24/16 09:24 96 09/24/16 08:00 93 I/O 09/24/16 09/24/16 09/24/16 09/25/16 09/25/16 09/25/16 07:00 15:00 23:00 07:00 15:00 23:00 Intake Total 480 ml 750 ml 480 ml Output Total 400 ml 650 ml Balance 80 ml 100 ml 480 ml Intake Oral 480 ml 750 ml 480 ml Output Urine Total 400 ml 650 ml # Voids 3 # Bowel Movements 2 7 2 Result Diagram: 09/22/16 1031 Imaging Last Impressions Myocardial Perfusion Scan Nuc Med 09/20/16 0000 Signed Impressions: Service Date/Time: Tuesday, September 20, 2016 10:16 - CONCLUSION: 1. Mild to moderate reversibility involving the apex suggesting ischemia. 2. Normal ejection fraction. RISK CATEGORY: Intermediate (1-3%% Annual Mortality Rate) Dhruv Tate MD CT Angiography 09/19/16 1628 Signed Impressions: Service Date/Time: Monday, September 19, 2016 16:43 - CONCLUSION: No evidence of pulmonary embolism Robin Tran MD Chest X-Ray 09/19/16 1543 Signed Impressions: Service Date/Time: Monday, September 19, 2016 15:55 - CONCLUSION: No acute disease. Robin Tran MD Objective Remarks GENERAL: 65 yo F, well nourished, well developed patient, appears in nad. SKIN: Warm and dry. HEAD: Atraumatic. Normocephalic. EYES: Pupils equal and round. No scleral icterus. No injection or drainage. ENT: No nasal bleeding or discharge. Mucous membranes pink and moist. NECK: Trachea midline. No JVD. CARDIOVASCULAR: Regular rate and rhythm. RESPIRATORY: No accessory muscle use. Clear to auscultation. Breath sounds equal bilaterally. GASTROINTESTINAL: Abdomen soft, obese, non-tender, nondistended. MUSCULOSKELETAL: Extremities without clubbing, cyanosis, or edema. No obvious deformities. NEUROLOGICAL: Awake and alert. No obvious cranial nerve deficits. Motor grossly within normal limits. Five out of 5 muscle strength in the arms and legs. Normal speech. PSYCHIATRIC: Appropriate mood and affect; insight and judgment normal. Procedures cardiac cath A/P Problem List: (1) Chest pain ICD Code: R07.9 Status: Acute (2) Hypertensive urgency ICD Code: I16.0 Status: Acute Assessment and Plan 65-year-old female with: Chest pain: Chest x-ray without acute disease. CTA negative for pulmonary embolus. Chest pain could likely be attributed to hypertension. s/p cardiac cath which showed patent coronaries and preserved ejection fraction. Pt has been cleared by cards once BP's controlled however she has been feeling very dizzy since being started on the BP meds. She is diagnosed w DM hbA1C 7.0. on lisinopril 20mg daily for kidney protection. metoprolol dose has already been decreased to 12.5mg BID. SBP are in the 130's, orthostatic BP neg, dizziness most likely is from side effects of BP meds which have now resolved. now pt complaining of vertigo. I personally spoke w PT and have requested that they show pt some vestibular exercises as I suspect that she may have some inner ear problems causing her vertigo. she has a prior hx of vertigo 5 years ago. She is on meclizine 25mg po TID however I do not want to increase the dose as pt seems to be very sensitive to meds in general. She will need a rolling walker and home health PT. I have also consulted senior engineering associate to speak w pt and educate her on diabetic diet. Hypertensive urgency: much improved -Metoprolol 12.5 mg every 12 hours, lisinopril 20mg po increased to BID. BP beter controlled -continue Enalapril and clonidine every 6 hours as needed for SBP>160 and/or DBP >90. -Tylenol prn for MYERS -Xanax prn for anxiety Diarrhea: start probiotics. C diff negative. Start imodium. Discharge Planning anticipate discharge later today if diarrhea subsides. Pt has been encouraged to f/u w a PCP in the next few days for BP control, vertigo and newly diagnosed DM Improved, cleared by cardiology for DC. To follow up as OP with PCP and consultants. Discussed with the patient, nurse. Problem Qualifiers (1) Chest pain: Qualified Code: R07.9 - Chest pain, unspecified type Malgorzata Chiang MD September 25, 2016 07:20
[2016-09-25] MEDS ORDERED: LOPE2CAP92 PO (07:46)
[2016-09-25] MEDS: POLYETHYLENE GLYCOL 17 GM PKG PO SCH (09:00)
[2016-09-25] MEDS: metFORMIN HCL 500 MG TAB PO SCH (09:05)
[2016-09-25] MEDS: LISINOPRIL 20 MG TAB PO SCH (09:05)
[2016-09-25] MEDS: ASPIRIN 81 MG CHEW TAB CHEW SCH (09:05)
[2016-09-25] MEDS: METOPROLOL TARTRATE 25 MG TAB PO SCH (09:06)
[2016-09-25] MEDS: SODIUM CHLORIDE 0.9% FLUSH 10 ML FLUSH IV FLUSH SCH (09:06)
[2016-09-25] MEDS: LACTOBACILLUS ACIDOPHILUS TAB PO SCH (09:07)
[2016-09-29] MEDS ORDERED: GLUCTES12 ×2 (18:30→19:02)
[2016-09-29] MEDS ORDERED: GLUCKIT15 ×2 (18:30→19:02)
[2016-10-04] MEDS ORDERED: MECL1TAB42 PO (12:37)
[2016-10-04] MEDS ORDERED: METO25TA3 PO (12:37)
[2016-10-04] MEDS ORDERED: METF500 PO (12:37)
[2016-10-04] MEDS ORDERED: LISI-515 PO (12:37)
[2016-10-04] MEDS ORDERED: ATOR20TA15 PO (12:37)
[2016-10-28] MEDS ORDERED: GLUCTES12 (14:23)
== END 2016-09-25 14:43 | disposition home or self-care (01) | DRG 287 ==
LOC: PHED 15:00 → PHEDA 17:21 → PH3B 19:00 → OBSVTOIN 09-20 13:15 → HDIC 09-20 14:16 → HCIN 09-20 18:45
PROVIDERS: ADMIT Hospitalist; ATTEND Hospitalist
PROC: 4A023N7 Measurement of Cardiac Sampling and Pressure, Left Heart, Percutaneous Approach (ICD-10-PCS; principal; 2016-09-20)
PROC: B211YZZ Fluoroscopy of Multiple Coronary Arteries using Other Contrast (ICD-10-PCS; 2016-09-20)
PROC: B215YZZ Fluoroscopy of Left Heart using Other Contrast (ICD-10-PCS; 2016-09-20)
DX: I16.0 Hypertensive urgency (principal); Z68.41 Body mass index [BMI] 40.0-44.9, adult; I10 Essential (primary) hypertension; G43.909 Migraine, unspecified, not intractable, without status migrainosus; M79.7 Fibromyalgia; E66.9 Obesity, unspecified; F41.9 Anxiety disorder, unspecified; E11.9 Type 2 diabetes mellitus without complications; R42 Dizziness and giddiness; Z85.3 Personal history of malignant neoplasm of breast; Z82.49 Family history of ischemic heart disease and other diseases of the circulatory system; Z85.71 Personal history of Hodgkin lymphoma
CPT/HCPCS: 71010; 71275; 78452; 80048; 80053; 80061; 82550; 82948; 83036; 83735; 84132; 84484; 85025; 85379; 85610; 85730; 87493; 93005; 93017; 93458; 99285; A9502; C1769; C1893; G0378; G8987-GP; G8988-GP; J1644; J1650; J1815; J2250; J2405; J2785; J3010; Q9967